=== PATIENT | female | born 1940 | race Caucasian/White ===

== ENCOUNTER → 2018-07-29 16:55 | Emergency (ER) | payer MEDICARE, BC ==
[~2018-07-29 16:55] MED LIST: Iodixanol* (CONTRAST) 320 MG/ML 100 ML SDV IV ONE
--- OUTSIDE RECORDS SUMMARY | 2018-07-29 17:09 | XMS REPORT | Continuity of Care Document ---
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 Sushil Shabazz MD Primary Care Physician Unavailable Payers Type Date Identification Numbers Payment Provider Subscriber Effective: Policy Number: [id number] [place] R[place]ff 2008 PayID: [id number] [address] [place] [address] Effective: 2008 Policy Number: [id number] [place] Ramos Expires: 2018 PayID: [id number] [address] [place] [address] Effective: 2004 Policy Number: [id number] [facility] Woody Ramos PayID: [id number] [address] [place] [address] Advance Directives Description No Information Available Problems Date Description Provider Status Onset: 03/09/2008 Aortic valve disorder Sushil Shabazz M.D. Active Onset: 03/09/2008 Osteochondropathy Sushil Shabazz M.D. Active Onset: 05/20/2011 Esophagitis Sushil Shabazz M.D. Active Onset: 05/20/2011 Hyperlipidemia Sushil Shabazz M.D. Active Onset: 10/02/2011 Contact dermatitis Sushil Shabazz M.D. Active Onset: 10/02/2011 Acute otitis externa Sushil Shabazz M.D. Active Onset: 10/15/2011 Arthralgia of the ankle and/or foot Dav Chavez M.D. Active Onset: 10/20/2011 Neuralgia Sushil Shabazz M.D. Active Onset: 12/15/2011 Superficial foreign body of finger Dav Chavez M.D. Active without major open wound but with infection Onset: 07/10/2015 Stenosis of foramen magnum Sushil Shabazz M.D. Active Family History Date Family Member(s) Problem(s) Comments Mother Breast Cancer Social History Type Date Description Comments Sex Unknown Tobacco Use Start: Unknown End: Unknown Former Cigarette Smoker Tobacco Use Start: Unknown End: Unknown Patient is a former smoker quit 1984 Smoking Status Reviewed: 07/19/18 Patient is a former smoker quit 1984 Allergies, Adverse Reactions, Alerts Date Description Reaction Status Severity Comments 07/05/2003 Penicillin Active Medications Medication Date Status Form Strength Qnty SIG Indications Ordering Provider Cyclobenzaprine 10/12 Active Tablets 10mg 45tab take one Carol HCL s tablet by Sunni, mouth twice a 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 NURSE day as needed pain Evening [place] Active Capsules 1 po bid Unknown Oil / Vitamin B Active Tablets 30tab 1 po bid Unknown Complex / s Vitamin E Active Capsules 400Unit 1 po qd Unknown /0000 Test/Estriol Active .5mg/GM 2 times per Unknown Vaginal Gel week Vitamin C Active Capsules 500mg 2 po bid Unknown / Calcium/Magnesiu Active 600/250 2 po bid Unknown m / mg Flax Seed Oil Active Capsules 1000mg 1 po tid Unknown / Progesterone Active topically Unknown Compound / Probiotic Active Capsules Unknown Acidophilus / Potassium & Active Capsules Unknown Magnesium / Vitamin D Active Capsules 5000Unit 1 by mouth Unknown /0000 every other day Xanax 16 Hx Tablets 0.25mg 20tab 1/2 to 1 tab F43.22 s by mouth To, - twice a day Afnp-C 04/29 as needed anxiety Ambien 16 Hx Tablets 5mg 14tab 1 po qhs prn F51.02 s insomnia To, - Afnp-C 10/05 Ciprofloxacin 02/26 Hx Solution 0.3% 5ml 2 qtts in H00.012 Carol HCL affected eye Sunni, - three times a CLINICAL 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 NURSE 03/30 day x 2d then twice a day until clear Physical Therapy 02/24 Hx evaluate and Ann Marie treat right Nainaorf, - intermittant Afnp-C 02/25 l buttock /2016 pain Nitrofurantoin 08/01 Hx Capsules 100mg 6caps 1 by mouth Sushil A. Monohydrate/Macr /2016 two times a Darlow, ocrystals - day M.D. 08/04 Clindamycin HCL 08/09 Hx Capsules 300mg 2caps 2 po, 1 hour Sushil A. /2014 [facility] 02/13 Meloxicam 04/28 Hx Tablets 7.5mg 28tab take 1 tablet 524.60 Sushil A. s bid Darlow, - M.D. 02/13 Orphenadrine 04/28 Hx Tablets 100mg 28tab take one Sushil A. Citrate ER /2013 ER 12HR s tablet [facility], - mouth twice a M.D. 02/13 day as needed /2014 Vivotif Geri 04/06 Hx Capsules 4caps 1 by mouth V65.[address] every other Kj, - day x 4 doses Afnp-C 04/14 Ciloxan 04/06 Hx Ointment 0.3% 15gr apply bid to 372.30 affected eye Kj, - x 7 days Afnp-C 02/13 Orphenadrine 02/09 Hx Tablets 100mg 28tab 1 po bid 524.60 Sushil A. Citrate ER 12HR s Darlow, - M.D. 02/23 Meloxicam 02/09 Hx Tablets 7.5mg 28tab take 1 tablet 524.60 Sushil A. s bid Darlow, - M.D. 02/23 Ciloxan 12/21 Hx Ointment 0.3% 15gr apply bid to 373.11 [facility]ushil A. [facility], - x 7 days M.D. 12/28 Tobramycin 12/09 Hx Solution 0.3% 5ml 2 gtts in os 379.90 Susie Sulfate tid x 5 days NUNU Villegas 12/21 Fluocinolone 09/23 Hx Cream 0.025% 30gm apply to 782.1 Carol Acetonide affected Sunni, - area bid CLINICAL 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 NURSE 12/09 Cipro 08/12 Hx Tablets 500mg 6tabs 1 po bid x 3 599.0 Susie /2013 days Brown, [employer] - 08/15 Clarithromycin 07/28 Hx Tablets 500mg 20tab 2 po qd 461.9 Sushil Ahumada ER ER 24HR Patricia Enamorado M.D. 08/07 Clindamycin HCL 08/17 Hx Capsules 300mg 2caps 2 po, 1 hour Sushil AIlir before dental Patricia Shabazz work Martha 08/18 Valium 05/31 Hx Tablets 5mg 30tab 1 po qday 300.00 Susanne Lazar Patricia Xiong M.D. 07/06 723.1 Physical Therapy 10/28/2011 - Hx treatment and Sushil Ahumada 12/15/2011 evaluation Martha Shabazz back pain Triamcinolone 10/02/2011 - Hx Lotion 0.02 60gr apply twice 692. Sushil Ahumada Acetonide 10/16/2011 5% daily as 9 Martha Shabazz directed for 14 days. Cipro HC 10/02/2011 - Hx Suspension 0.2- 10cc 2 gtt affected 380. Sushil AIlir 10/09/2011 1% ear bid x 7 22 Martha Shabazz days Tobradex 07/23/2011 - Hx Ointment 0.3- 15gr apply tid x 7 Sushil AIlir 07/30/2011 0.1% days Martha Shabazz Valium 06/30/2011 - Hx Tablets 5mg 30ta 1 po qday Sushil AIlir 10/02/2011 bs Martha Shabazz Cortisporin Otic 02/27/2011 - Hx Solution 15cc 2 gtt affected Sushil AIlir 03/06/2011 ear tid x 1 Martha Shabazz week Vosol 02/20/2011 - Hx Solution 2% 15cc 1-2 drops V41. Sushil AIlir 02/25/2011 affected ear 3 Martha Shabazz qd until problem resolved Clindamycin HCL 09/02/2010 - Hx Capsules 300m 2cap 2 po, 1 hour Sushil A. 12/11/2010 g s before dental Martha Shabazz work Clindamycin 03/31/2010 - Hx Capsules 300m 40ca 1 po qid x 10 Bekah von 09/02/2010 g ps Martha Alejandra Tobramycin 03/20/2010 - Hx Solution 0.3% 5ml 2 gtts qid for 372. Laine Gunn Sulfate 05/10/2010 one week OS 00 Martha San Vitamin E 03/01/2009 - Hx Capsules 400U 1 po qd [facility] 10/02/2011 nit [facility] Selenium 03/01/2009 - Hx Tablets 100m 1 PO qd [facility] 12/11/2010 cg [facility] Flaxseed Oil 03/01/2009 - Hx Capsules 1000 1 po qd [facility] 10/02/2011 mg [facility] Multivitamins 03/01/2009 - Hx Tablets 1 po qd [facility] 12/11/2010 [facility] Omeprazole 12/26/2008 - Hx Capsules DR 20mg 60ca 1 po bid Sushil A. 03/01/2009 yue Shabazz M.D. Nexium 12/14/2008 - Hx Capsules DR 40mg 30ca 1 po qd Sushil A. 12/14/2008 ps Martha Shabazz Pantoprazole 12/14/2008 - Hx 40mg 30un 1 po qd-bid Sushil A. 12/26/2008 its prn 1 po qd Martha Shabazz Physical Therapy 12/12/2008 - Hx treatment and Sushil AIlir 03/31/2010 evaluation for Martha Shabazz left rotator cuff-shoulder pain Vicodin 09/27/2008 - Hx Tablets 5-50 40ta 1-2 po qhs prn Bekah mendez 12/18/2008 0mg bs Martha Alejandra Tramadol HCL 09/21/2008 - Hx Tablets 50mg 120t 1 q6h prn pain Sushil A. 12/18/2008 abs Martha Shabazz Diflucan 09/08/2008 - Hx Tablets 150m 2tab 1 po times 1, Laine Gunn 12/18/2008 g s may repeat in Martha San 4 days if symptoms persist Fosamax 07/24/2008 - Hx Tabs 70mg 12ta Take One Sushil A. 03/01/2009 bs Tablet By Martha Shabazz Mouth Once A Week as Directed. Miralax 05/30/2008 - Hx Packet 3350 527G 17 grams qd as 564. Sushil A. 12/18/2008 NF directed 09 Martha Shabazz Naproxen Sodium 11/24/2007 - Hx Tablets 275m 60ta 1 po tid prn Ann Marie 11/24/2007 g bs Hilninaorf, Afnp-C Ultracet 11/24/2007 - Hx Tablets 180t 1-2 tid prn Sushil A. 09/21/2008 abs pain Martha Shabazz Naproxen 11/24/2007 - Hx Tablets 500m 60ta 1 po bid prn Ann Marie 12/18/2008 g bs pain Nainaorf, Afnp-C Physical Therapy 11/24/2007 - Hx l radicular Ann Marie 03/09/2008 [facility]suspect back Afnp-C origin , please evaluate and treat for pain relief and prevention Ambien 11/11/2007 - Hx Tablets 10mg 30ta 1 po qhs prn Sushil A. 10/02/2011 bs sleep Martha Shabazz Ambien CR 06/17/2007 - Hx 12.5 90un 1 po qhs Sushil A. 11/11/2007 mg its Martha Shabazz disp ninety Rhinocort Aqua 06/05/2007 - Hx Suspension 32mc 1uni 381. Carol Moeller, Nasal Eclectic 03/01/2009 g/In ts 04 CLINICAL 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 NURSE hala tion Zithromax 01/16/2007 - Hx Tablets 250m 1tab 2 po qd today Asad F. 01/16/2007 g s , then 1 po qd Shallish, times 4 M.D. Levaquin 01/16/2007 - Hx Tablets 500m 7tab 1 po qd 466. Asad F. 01/23/2007 g s 0 Martha Page Ceftin 12/21/2006 - Hx Tablets 500m 20ta 1 po bid x 10 Orlando T. 01/16/2007 g bs days Martha Good Ibuprofen 09/08/2006 - Hx 2 600m 42un 1 po tid with 728. Abigail A 06/05/2007 g its food 85 Wood, [employer] Flexeril 09/08/2006 - Hx Tablets 10mg 42ta 1 po tid prn 723. Sushil A. 10/02/2011 bs muscle spasm 9 Martha Shabazz Celebrex 07/07/2006 - Hx Capsules 100m 180c 1 bid prn 715. Sushil A. 03/09/2008 g aps 09 Martha Shabazz take with food 723.9 Naprosyn 05/15/2006 - Hx Tablets 500mg 60tabs 1 po bid with Sushil A. 06/05/2007 food Martha Shabazz Glucosamine 02/05/2006 - Hx 1500A Day Denys J. Sulfate 12/11/2010 Martha Lincoln Clindamycin 01/05/2006 - Hx Capsules 300mg 2caps 2 po 1 hour Sushil A. 06/27/2010 before dental deny Shabazz M.D. Hormone 11/06/2005 - Hx 30D progesterone Sushil A. Compounded 10/02/2011 75mg/0.2cc; Mele testosterone M.DIlir 1mg; dhea 5mg apply 0.1cc bid ; note: estrogen stopped based on labs Melatonin 09/03/2005 - Hx 5mg as directed Family 09/03/2005 [facility] Melatonin 09/03/2005 - Hx 3mg 2 qhs 4-5 h Family 06/05/2007 before bedtime. [facility] Physical 08/22/2005 - Hx treatment and Denys J. Therapy 09/03/2005 evaluation for Salazar, bilateral hip M.D. pain Omeprazole 08/14/2005 - Hx Capsules 20mg 90caps 1 po qd Ann Marie 12/14/2008 Nadya Ariza Estradiol 06/30/2005 - Hx 1Tube apply 1gm to Denys Hernández Vaginal Cream 06/30/2005 introitus 3x/wk Finver, for 3 wks of M.D. month Progesterone 06/30/2005 - Hx Capsules 100mg 60caps 1 po bid Denys J. 11/06/2005 Martha Lincoln Hormone Cream 06/30/2005 - Hx Cream Compounded 30Day biest 80/20 Denys Sandoval. 11/06/2005 e3:e2 [place], 0.5mg/0.2cc M.D. apply 0.1 cc bid to skin Flexeril 06/02/2005 - Hx Tablets 10mg 30tabs 1 po Q hs prn 7 Carol 09/03/2005 muscle spasm 2 Sunni, 3 CLINICAL 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 NURSE . 9 Physical 06/02/2005 - Hx treatment and 7 Carol Therapy 09/03/2005 evaluation 2 Sunni, cervical strain 3 CLINICAL 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 NURSE with . radiculpathy to 9 RT arm Physical 12/05/2004 - Hx 3/WK 6WKS treatment and Denys J. Therapy 09/03/2005 evaluation for lt Salazar hip pain M.DIlir /DJDIlir and gait abnormality assoc with the pain Calcium 10/18/2004 - Hx Lozenges 600mg Denys J. Citrate 03/01/2009 Martha Lincoln Work Excuse 10/18/2004 - Hx Seen In My Denys Hernández 10/19/2004 Office AT Salazar, 10:30Am This Martha Morning For Sick Visit. Ok To Return To Work Today Diflucan 10/18/2004 - Hx Tablets 150mg 1tabs 1 po times 1 Denys J. 10/19/2004 day Martha Lincoln Clindamycin 10/01/2004 - Hx 600mg 1units take 1 hour Sushil A. 01/05/2006 prior to lizzy Shabazz M.D. Flu Vaccine 05/24/2004 - Hx pt is to have Denys Hernández 09/03/2005 flu shot Martha Lincoln Premarin 04/03/2004 - Hx .625mg/ Gram 3Tube 2 grams Denys JIlir Vaginal Cream 06/30/2005 intravaginally Salazar 2 x weekly M.DIlir Physical 02/23/2004 - Hx treatment and Bekah Therapy 04/24/2004 evaluation for vanessa Alejandra hip therapy Martha after hip surgery Prilosec 01/22/2004 - Hx 20mg 30units 1 po qd Bekah 04/24/2004 vanessa Alejandra M.D. Vicodin 01/09/2004 - Hx 5/500 60units 1-2 po q4hrs Denys Hernández 01/26/2004 prn Martha Lincoln Albuterol 12/04/2003 - Hx 1units 2 puffs q4hr Denys Hernández Inhaler 05/30/2008 Martha Lincoln Biaxin XL 10/26/2003 - Hx 500mg 14units 2 po qd Sushil Ahumada 11/09/2003 Martha Shabazz Extendryl SR 10/26/2003 - Hx Capsules 20caps 1 bid Sushil Ahumada Caps 11/05/2003 Martha Shabazz Naprosyn 09/22/2003 - Hx Tabs 500mg 90tabs 1 bid with food Denys Hernández 01/26/2004 Martha Lincoln Ultracet 08/30/2003 - Hx 37.5/325 360unit 1q6hrs prn Denys Hernández 01/26/2004 augustine Lincoln M.D. 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 Celebrex 07/05/2003 - Hx Tabs 200mg 180tabs 1 po bid prn Denys Hernández 01/26/2004 Martha Lincoln Osteo Complex - Hx Capsules Unknown 10/02/2011 Vitamin D - Hx Capsules [id number] 1 po qd Unknown 02/13/2015 Ginko E/S - Hx 300mg 1 po bid Unknown 10/20/2012 Potassium/Magn - Hx 99/70 mg 1 po bid Unknown esium 12/21/2013 Cod Liver Oil - Hx qd Unknown 08/12/2013 Metoprolol - Hx Tablets 25mg 180tabs 1 po bid Unknown Tartrate 09/14/2012 Aspirin Ec - Hx Tablets DR 81mg 30tabs 1 po qd Unknown 10/20/2012 Xarelto - Hx Tablets 20mg 1 po qd Unknown 07/06/2013 Sotalol HCL - Hx Tablets 80mg 1 po bid Unknown 07/06/2013 Aspirin Ec - Hx Tablets DR 81mg 100tabs 1 po qd Unknown 10/10/2015 Medications Administered in Office Medication Date Status Form Strength Qnty SIG Indications Ordering Provider H1N1 MDCR Administered Injection Susanne Cady vaccine any 010 Garydarian M.D. Immunizations CPT Code Status Date Vaccine Reaction Lot # [id number] Given 05/11/2018 High-Dose, Influenza Virus [id number] Vacccine-fluzone 65 and older 94431 Given 02/26/2017 High-Dose, Influenza Virus [id number] Vacccine-fluzone 65 and older 40093 Given 06/27/2016 Influenza Vac, Quadrivalent, [id number] [address] Given 07/10/2015 Pneumococcal Conjugate [id number] Vacc-13 66488 Given 05/08/2015 Influenza Vac, Quadrivalent, [id number] Slit Virus, Im Q2038 Given 04/06/2014 Split Influenza Medicare: [id number] Fluzone 97442 Given 04/06/2014 Tdap Tetanus, W Pertussis [id number] 66527 Given 04/06/2014 (IPV) Inactive Poliovirus [id number] Vaccine 31784 Given 04/06/2014 Hep A Adlt Immunization [id number] 55242 Given 06/30/2013 Preservative free flu 3 yrs+ [id number] and older Q2038 Given 03/05/2012 Split Influenza Medicare: no reaction noted [id number] Fluzone Q2038 Given 05/02/2011 Split Influenza Medicare: [id number] Fluzone 54699 Given 03/16/2010 DO Not Use Split Influenza [id number] Virus Vaccine 24946 Given 06/29/2009 H1N1 Virus Vaccine [id number] 65935 Given 05/16/2009 DO Not Use Split Influenza [id number] Virus Vaccine 53657 Given 03/21/2008 DO Not Use Split Influenza [id number] Virus Vaccine 79525 Given 06/03/2007 DO Not Use Split Influenza [id number] Virus Vaccine 56902 Given 05/14/2005 Pneumococcal Immunization 06282 Given 03/20/2005 DO Not Use Split Influenza Virus Vaccine 56649 Given 12/12/2003 Td Immunization, For Use In Individuals 7 Years Or Older 79119 Given 12/12/2003 DT Immunization Vital Signs Date Vital Result Comment 07/19/2018 7:30pm BP Systolic 110 mmHg BP Diastolic 70 mmHg Heart Rate 60 /min Body Temperature 98.0 F Respiratory Rate 16 /min Height 67.5 inches 5'7.50" Weight 145.00 lb BMI (Body Mass Index) 22.4 kg/m2 01/14/2018 1:56pm BP Systolic 100 mmHg BP Diastolic 60 mmHg Heart Rate 84 /min Body Temperature 98.4 F Respiratory Rate 16 /min Height 67.5 inches 5'7.50" Weight 143.00 lb BMI (Body Mass Index) 22.1 kg/m2 11/04/2017 8:16am BP Systolic 116 mmHg BP Diastolic 66 mmHg Heart Rate 80 /min Body Temperature 97.6 F Respiratory Rate 16 /min Height 67.5 inches 5'7.50" Weight 147.00 lb BMI (Body Mass Index) 22.7 kg/m2 03/30/2017 2:46pm BP Systolic 100 mmHg BP Diastolic 56 mmHg Heart Rate 68 /min Body Temperature 97.7 F Respiratory Rate 16 /min Height 67.5 inches 5'7.50" Weight 146.00 lb BMI (Body Mass Index) 22.5 kg/m2 02/26/2017 1:52pm BP Systolic 96 mmHg BP Diastolic 56 mmHg Heart Rate 72 /min Body Temperature 97.7 F Height 67.5 inches 5'7.50" Weight 153.50 lb BMI (Body Mass Index) 23.7 kg/m2 12/29/2016 4:17pm BP Systolic 110 mmHg BP Diastolic 72 mmHg Heart Rate 68 /min Body Temperature 97.7 F Height 67.5 inches 5'7.50" Weight 151.38 lb BMI (Body Mass Index) 23.4 kg/m2 10/28/2016 8:36am BP Systolic 118 mmHg BP Diastolic 72 mmHg Heart Rate 92 /min Body Temperature 97.3 F Respiratory Rate 16 /min Height 67.5 inches 5'7.50" Weight 154.00 lb BMI (Body Mass Index) 23.8 kg/m2 08/28/2016 4:23pm BP Systolic 130 mmHg BP Diastolic 62 mmHg Heart Rate 76 /min Body Temperature 98.5 F Respiratory Rate 18 /min Height 67.5 inches 5'7.50" Weight 150.25 lb BMI (Body Mass Index) 23.2 kg/m2 02/25/2016 11:23am BP Systolic 90 mmHg BP Diastolic 50 mmHg Heart Rate 74 /min Body Temperature 98.6 F Respiratory Rate 16 /min Height 67.5 inches 5'7.50" 02/06/2016 10:53am BP Systolic 110 mmHg BP Diastolic 70 mmHg Heart Rate 72 /min Body Temperature 97.5 F Respiratory Rate 16 /min Height 67.5 inches 5'7.50" Weight 146.00 lb BMI (Body Mass Index) 22.5 kg/m2 10/10/2015 11:00am BP Systolic 120 mmHg BP Diastolic 60 mmHg Heart Rate 88 /min Body Temperature 98.1 F Respiratory Rate 12 /min Height 67.5 inches 5'7.50" Weight 146.00 lb BMI (Body Mass Index) 22.5 kg/m2 09/12/2015 3:23pm BP Systolic 110 mmHg BP Diastolic 54 mmHg Heart Rate 84 /min Body Temperature 98.1 F Respiratory Rate 16 /min Height 67.5 inches 5'7.50" Weight 143.00 lb BMI (Body Mass Index) 22.1 kg/m2 08/15/2015 1:46pm BP Systolic 110 mmHg BP Diastolic 60 mmHg Heart Rate 76 /min Body Temperature 97.7 F Respiratory Rate 16 /min Height 67.5 inches 5'7.50" Weight 144.00 lb BMI (Body Mass Index) 22.2 kg/m2 07/10/2015 10:39am BP Systolic 110 mmHg BP Diastolic 64 mmHg Heart Rate 68 /min Body Temperature 97.5 F Respiratory Rate 16 /min Height 67.5 inches 5'7.50" Weight 141.00 lb BMI (Body Mass Index) 21.8 kg/m2 02/13/2015 8:57am BP Systolic 102 mmHg BP Diastolic 62 mmHg Heart Rate 68 /min Body Temperature 98.0 F Height 67.5 inches 5'7.50" Weight 138.25 lb BMI (Body Mass Index) 21.3 kg/m2 04/06/2014 3:33pm BP Systolic 110 mmHg BP Diastolic 60 mmHg Heart Rate 78 /min Body Temperature 98.4 F Height 67.5 inches 5'7.50" Weight 135.38 lb BMI (Body Mass Index) 20.9 kg/m2 02/09/2014 6:05pm BP Systolic 100 mmHg BP Diastolic 70 mmHg Heart Rate 100 /min Body Temperature 98.1 F Respiratory Rate 16 /min Height 67.5 inches 5'7.50" Weight 132.00 lb BMI (Body Mass Index) 20.4 kg/m2 12/21/2013 8:44am BP Systolic 110 mmHg BP Diastolic 60 mmHg Heart Rate 64 /min Body Temperature 97.4 F Respiratory Rate 12 /min Height 67.5 inches 5'7.50" Weight 139.00 lb BMI (Body Mass Index) 21.4 kg/m2 12/09/2013 10:58am BP Systolic 100 mmHg BP Diastolic 60 mmHg Heart Rate 68 /min Body Temperature 98.1 F Respiratory Rate 16 /min Height 67.5 inches 5'7.50" Weight 138.00 lb BMI (Body Mass Index) 21.3 kg/m2 09/23/2013 4:22pm BP Systolic 112 mmHg BP Diastolic 70 mmHg Heart Rate 62 /min Body Temperature 97.7 F Respiratory Rate 18 /min Height 67.5 inches 5'7.50" Weight 146.00 lb BMI (Body Mass Index) 22.5 kg/m2 08/12/2013 4:50pm BP Systolic 114 mmHg BP Diastolic 64 mmHg Heart Rate 72 /min Body Temperature 98.4 F Respiratory Rate 16 /min Height 67.5 inches 5'7.50" Weight 148.38 lb BMI (Body Mass Index) 22.9 kg/m2 07/28/2013 3:25pm BP Systolic 112 mmHg BP Diastolic 70 mmHg Heart Rate 80 /min Body Temperature 98.1 F Respiratory Rate 16 /min O2 % BldC Oximetry 98 % Height 67.5 inches 5'7.50" Weight 147.00 lb BMI (Body Mass Index) 22.7 kg/m2 07/06/2013 10:46am BP Systolic 122 mmHg BP Diastolic 70 mmHg Heart Rate 80 /min Body Temperature 97.5 F Respiratory Rate 16 /min Height 67.5 inches 5'7.50" Weight 153.00 lb BMI (Body Mass Index) 23.6 kg/m2 10/20/2012 11:55am BP Systolic 116 mmHg BP Diastolic 60 mmHg Heart Rate 72 /min Body Temperature 97.7 F Respiratory Rate 16 /min Height 67.25 inches 5'7.25" Weight 153.00 lb BMI (Body Mass Index) 23.8 kg/m2 09/14/2012 2:48pm BP Systolic 110 mmHg BP Diastolic 62 mmHg Heart Rate 76 /min Body Temperature 98.7 F Height 67.25 inches 5'7.25" Weight 153.00 lb BMI (Body Mass Index) 23.8 kg/m2 09/03/2012 4:18pm BP Systolic 102 mmHg BP Diastolic 62 mmHg Heart Rate 80 /min Body Temperature 98.3 F Height 67.25 inches 5'7.25" Weight 153.00 lb BMI (Body Mass Index) 23.8 kg/m2 09/02/2012 5:27pm BP Systolic 114 mmHg BP Diastolic 58 mmHg Heart Rate 88 /min Body Temperature 98.9 F Respiratory Rate 16 /min Height 67.25 inches 5'7.25" Weight 153.00 lb BMI (Body Mass Index) 23.8 kg/m2 06/30/2012 2:41pm BP Systolic 120 mmHg BP Diastolic 80 mmHg Heart Rate 84 /min Body Temperature 97.2 F Respiratory Rate 16 /min Height 67.25 inches 5'7.25" Weight 159.00 lb BMI (Body Mass Index) 24.7 kg/m2 05/31/2012 8:16am BP Systolic 120 mmHg BP Diastolic 80 mmHg Heart Rate 88 /min Body Temperature 97.6 F Respiratory Rate 20 /min Height 67.25 inches 5'7.25" Weight 156.00 lb BMI (Body Mass Index) 24.2 kg/m2 02/06/2012 10:26am BP Systolic 98 mmHg BP Diastolic 60 mmHg Heart Rate 84 /min Body Temperature 97.9 F Height 67.25 inches 5'7.25" Weight 153.00 lb BMI (Body Mass Index) 23.8 kg/m2 12/15/2011 3:30pm BP Systolic 110 mmHg BP Diastolic 72 mmHg Heart Rate 80 /min Body Temperature 98.2 F Height 67.25 inches 5'7.25" Weight 150.00 lb BMI (Body Mass Index) 23.3 kg/m2 10/20/2011 11:01am BP Systolic 150 mmHg BP Diastolic 80 mmHg Heart Rate 84 /min Body Temperature 97.5 F Respiratory Rate 20 /min Height 67.25 inches 5'7.25" Weight 146.00 lb BMI (Body Mass Index) 22.7 kg/m2 10/15/2011 5:43pm BP Systolic 108 mmHg BP Diastolic 78 mmHg Heart Rate 78 /min Body Temperature 97.9 F Height 67.25 inches 5'7.25" Weight 144.00 lb BMI (Body Mass Index) 22.4 kg/m2 10/02/2011 1:23pm BP Systolic 120 mmHg BP Diastolic 70 mmHg Heart Rate 84 /min Body Temperature 98.5 F Respiratory Rate 16 /min O2 % BldC Oximetry 96 % Height 67.25 inches 5'7.25" Weight 142.00 lb BMI (Body Mass Index) 22.1 kg/m2 08/05/2011 11:21am BP Systolic 110 mmHg BP Diastolic 68 mmHg Heart Rate 80 /min Body Temperature 98.7 F Respiratory Rate 16 /min Height 67.25 inches 5'7.25" Weight 142.00 lb BMI (Body Mass Index) 22.1 kg/m2 Right Visual Acuity Distance 20/25 corrected Left Visual Acuity Distance 20/25 corrected 05/20/2011 9:55am BP Systolic 110 mmHg BP Diastolic 72 mmHg Heart Rate 66 /min Body Temperature 97.3 F Respiratory Rate 16 /min Height 67.25 inches 5'7.25" Weight 144.00 lb BMI (Body Mass Index) 22.4 kg/m2 02/20/2011 2:36pm BP Systolic 90 mmHg BP Diastolic 70 mmHg Heart Rate 68 /min Body Temperature 98.2 F Respiratory Rate 16 /min Height 67.25 inches 5'7.25" Weight 147.50 lb BMI (Body Mass Index) 22.9 kg/m2 12/11/2010 3:20pm BP Systolic 100 mmHg BP Diastolic 70 mmHg Heart Rate 72 /min Body Temperature 97.3 F Height 67.25 inches 5'7.25" Weight 158.00 lb BMI (Body Mass Index) 24.6 kg/m2 05/10/2010 11:00am BP Systolic 114 mmHg BP Diastolic 62 mmHg Heart Rate 84 /min Body Temperature 97.8 F Height 67.25 inches 5'7.25" Weight 162.00 lb BMI (Body Mass Index) 25.2 kg/m2 03/20/2010 8:52pm BP Systolic 100 mmHg BP Diastolic 62 mmHg Heart Rate 72 /min Body Temperature 97.2 F Respiratory Rate 14 /min Height 67.25 inches 5'7.25" Weight 162.00 lb BMI (Body Mass Index) 25.2 kg/m2 02/05/2010 1:35pm BP Systolic 84 mmHg BP Diastolic 62 mmHg Heart Rate 60 /min Height 67.25 inches 5'7.25" Weight 160.00 lb BMI (Body Mass Index) 24.9 kg/m2 01/28/2010 2:19pm BP Systolic 110 mmHg BP Diastolic 60 mmHg Heart Rate 68 /min Body Temperature 98.1 F Respiratory Rate 16 /min Height 67.25 inches 5'7.25" Weight 160.00 lb BMI (Body Mass Index) 24.9 kg/m2 10/31/2009 9:49am BP Systolic 84 mmHg BP Diastolic 64 mmHg Heart Rate 66 /min Body Temperature 96.7 F Height 67.25 inches 5'7.25" Weight 155.00 lb BMI (Body Mass Index) 24.1 kg/m2 06/29/2009 3:55pm BP Systolic 98 mmHg BP Diastolic 68 mmHg Heart Rate 76 /min Body Temperature 97.4 F Respiratory Rate 12 /min Weight 151.00 lb 05/16/2009 6:10pm BP Systolic 92 mmHg BP Diastolic 60 mmHg Heart Rate 72 /min Body Temperature 97.4 F 03/01/2009 2:55pm BP Systolic 100 mmHg BP Diastolic 60 mmHg Heart Rate 72 /min Body Temperature 98.4 F Respiratory Rate 18 /min Weight 145.00 lb 12/26/2008 10:32am BP Systolic 118 mmHg BP Diastolic 62 mmHg Heart Rate 72 /min Body Temperature 97.8 F Respiratory Rate 16 /min Weight 142.00 lb 12/18/2008 9:06am BP Systolic 98 mmHg BP Diastolic 60 mmHg Heart Rate 104 /min Body Temperature 98.8 F Respiratory Rate 20 /min Weight 141.00 lb 05/30/2008 11:05am BP Systolic 108 mmHg BP Diastolic 72 mmHg Heart Rate 88 /min Body Temperature 97.2 F Respiratory Rate 12 /min Height 67.25 inches 5'7.25" Weight 166.00 lb BMI (Body Mass Index) 25.8 kg/m2 03/21/2008 9:24am BP Systolic 92 mmHg BP Diastolic 60 mmHg Heart Rate 88 /min Body Temperature 97.2 F Respiratory Rate 16 /min Height 67.25 inches 5'7.25" Weight 169.00 lb BMI (Body Mass Index) 26.3 kg/m2 03/09/2008 12:37pm BP Systolic 92 mmHg BP Diastolic 64 mmHg Heart Rate 84 /min Body Temperature 98.2 F Respiratory Rate 16 /min Height 67.25 inches 5'7.25" Weight 173.00 lb BMI (Body Mass Index) 26.9 kg/m2 11/24/2007 6:09pm BP Systolic 126 mmHg BP Diastolic 78 mmHg Heart Rate 88 /min Respiratory Rate 13 /min Weight 170.00 lb 11/02/2007 8:22am BP Systolic 98 mmHg BP Diastolic 58 mmHg Heart Rate 74 /min Respiratory Rate 16 /min Weight 172.00 lb 10/11/2007 8:15pm BP Systolic 100 mmHg BP Diastolic 70 mmHg Body Temperature 98.0 F Weight 172.00 lb 09/20/2007 8:34pm BP Systolic 98 mmHg BP Diastolic 60 mmHg Heart Rate 78 /min Body Temperature 98.1 F Respiratory Rate 13 /min 06/05/2007 11:05am BP Systolic 110 mmHg BP Diastolic 60 mmHg Heart Rate 88 /min Body Temperature 96.4 F Weight 170.00 lb 01/23/2007 11:06am BP Systolic 96 mmHg BP Diastolic 50 mmHg Heart Rate 72 /min Body Temperature 97.5 F Respiratory Rate 20 /min O2 % BldC Oximetry 96 % Weight 168.00 lb 01/16/2007 1:52pm BP Systolic 104 mmHg BP Diastolic 60 mmHg Heart Rate 80 /min Body Temperature 97.6 F Weight 168.00 lb 12/21/2006 6:23pm BP Systolic 106 mmHg BP Diastolic 60 mmHg Body Temperature 98.3 F Weight 170.00 lb 11/27/2006 4:27pm BP Systolic 100 mmHg BP Diastolic 50 mmHg Heart Rate 84 /min Weight 169.00 lb 09/08/2006 7:36pm BP Systolic 100 mmHg BP Diastolic 60 mmHg Body Temperature 72.0 F Weight 171.00 lb 08/10/2006 4:22pm BP Systolic 120 mmHg BP Diastolic 82 mmHg Heart Rate 72 /min Respiratory Rate 18 /min 07/07/2006 10:50am BP Systolic 122 mmHg BP Diastolic 70 mmHg Heart Rate 62 /min Respiratory Rate 16 /min Weight 172.00 lb 02/05/2006 8:43am BP Systolic 100 mmHg BP Diastolic 74 mmHg Heart Rate 76 /min Weight 166.00 lb 11/06/2005 11:00am BP Systolic 100 mmHg BP Diastolic 60 mmHg Heart Rate 66 /min Weight 166.00 lb 09/03/2005 8:19pm BP Systolic 102 mmHg BP Diastolic 68 mmHg Heart Rate 72 /min 08/14/2005 10:07am BP Systolic 106 mmHg BP Diastolic 60 mmHg Heart Rate 72 /min Weight 165.00 lb 06/30/2005 2:20pm BP Systolic 102 mmHg BP Diastolic 62 mmHg Heart Rate 76 /min Weight 163.00 lb 06/02/2005 8:19pm BP Systolic 108 mmHg BP Diastolic 70 mmHg Heart Rate 72 /min Weight 166.00 lb 04/03/2005 9:00am BP Systolic 90 mmHg BP Diastolic 50 mmHg Heart Rate 75 /min 01/07/2005 8:14pm BP Systolic 96 mmHg BP Diastolic 54 mmHg Heart Rate 72 /min Weight 160.00 lb 10/18/2004 10:10am BP Systolic 90 mmHg BP Diastolic 60 mmHg Heart Rate 78 /min Weight 159.00 lb 04/24/2004 6:41pm BP Systolic 88 mmHg BP Diastolic 54 mmHg Heart Rate 68 /min Weight 153.00 lb 02/13/2004 11:13am BP Systolic 90 mmHg BP Diastolic 68 mmHg Heart Rate 84 /min Weight 150.00 lb 01/26/2004 2:17pm BP Systolic 102 mmHg BP Diastolic 72 mmHg Heart Rate 76 /min Weight 154.00 lb 01/11/2004 2:11pm BP Systolic 94 mmHg BP Diastolic 64 mmHg Heart Rate 88 /min Body Temperature 96.9 F Weight 159.00 lb 12/12/2003 6:38pm BP Systolic 94 mmHg BP Diastolic 68 mmHg Heart Rate 84 /min Body Temperature 96.7 F Weight 164.00 lb 12/04/2003 1:18pm BP Systolic 118 mmHg BP Diastolic 72 mmHg Heart Rate 76 /min Body Temperature 99.2 F Weight 162.00 lb 10/26/2003 7:51pm BP Systolic 120 mmHg BP Diastolic 70 mmHg Heart Rate 76 /min Body Temperature 97.4 F Weight 164.00 lb 07/05/2003 6:23pm BP Systolic 90 mmHg BP Diastolic 60 mmHg Heart Rate 60 /min Weight 166.00 lb Results Test Date Facility Test Result H/L Range Note Lipid Profile 06/04/2018 Agapito Kyra ([facility]) Cholesterol 265 mg/dL High 120-200 Triglycerides 108 mg/dL 30-200 HDL Cholesterol 119 mg/dL High 30-85 LDL (Calculated) 124 CALC 0-129 VLDL Cholesterol 22 mg/dL 0-50 HDL Risk Factor 2.2 CALC 0.0-4.4 Laboratory test 11/04/2017 Agapito Kyra ([facility]) Vitamin D25 46 30-100 finding CBC Electronic a 11/04/2017 Agapito Kyra ([facility]) WBC 5.9 4.0-10.0 x10^3/UL RBC 4.17 x10^6/UL 3.93-6.00 HGB 13.4 g/dL 12.0-17.0 HCT 41 % 35-50 MCV 98.6 fL High 80.0-95.0 MCH 32.1 pg 25.6-32.2 MCHC 32.6 g/dL 32.2-36.0 RDW-CV 14.5 % High 11.6-14.4 PLT 172 x10^3/UL 163-400 MPV 10.3 fL 9.4-12.4 Sourav# 3.27 x10^3/UL 1.56-6.13 Lymph# 1.82 x10^3/UL 1.18-3.74 Mclennan# 0.54 x10^3/UL 0.24-0.82 Eos # 0.2 x10^3/UL 0.0-0.5 Baso # 0.04 x10^3/UL 0.01-0.08 Sourav% 55.5 % 34.0-70.0 Lymph % 30.9 % 20.0-52.0 Mclennan% 9.2 % 5.0-12.0 Eos% 3.4 % 0.7-7.0 Baso% 0.7 % 0.1-1.2 Comprehensive Metabolic 11/04/2017 Altman Kyra ([facility]) Sodium 142 mEq/L 134-149 Prof Potassium 4.3 mEq/L 3.6-5.5 Chloride 101 mEq/L 94-112 Carbon Dioxide 29 mEq/L 21-32 Glucose 111 mg/dL High 70-105 1 BUN 17 mg/dL 6-26 Creatinine 0.9 mg/dL 0.6-1.4 BUN/Creat Ratio 18.9 CALC 8.0-36.0 Calcium 9.3 mg/dL 8.6-10.2 Total Protein 6.7 g/dL 6.4-8.3 Albumin 4.4 g/dL 3.8-5.5 Globulin 2.3 g/dL 2.0-4.8 A/G Ratio 1.9 CALC 0.6-2.3 Alk. Phosphatase 63 U/L 30-110 Alt (SGPT) 17 U/L 7-35 Ast (Sgot) 25 U/L 5-34 Total Bilirubin 0.4 mg/dL 0.2-1.3 GFR Non- >60 ml/min/1.73m^ >=60 GFR >60 ml/min/1.73m^ >=60 Lipid Profile 11/04/2017 Agapito Rae ([facility]) Cholesterol 295 mg/dL High 120-200 Triglycerides 78 mg/dL 30-200 HDL Cholesterol 110 mg/dL High 30-85 2 LDL (Calculated) 169 CALC High 0-129 VLDL Cholesterol 16 mg/dL 0-50 HDL Risk Factor 2.7 CALC 0.0-4.4 CBC Auto Diff 01/23/2016 [facility] [place] Blood Count 6.8 10^3/uL N 3.5-10.8 Red Blood Count 3.81 10^6/uL Low 4.0-5.4 Hemoglobin 11.8 g/dL Low 12.0-16.0 Hematocrit 36 % N 35-47 Mean Corpuscular Volume 95 fL N 80-97 Mean Corpuscular Hemoglobin 31 pg N 27-31 Mean Corpuscular HGB Conc 33 g/dL N 31-36 Red Cell Distribution Width 14 % N 10.5-15 Platelet Count 168 10^3/uL N 150-450 Mean Platelet Volume 9 um3 N 7.4-10.4 Abs Neutrophils 4.1 10^3/uL N 1.5-7.7 Abs Lymphocytes 1.8 10^3/uL N 1.0-4.8 Abs Monocytes 0.7 10^3/uL N 0-0.8 Abs Eosinophils 0.1 10^3/uL N 0-0.6 Abs Basophils 0.1 10^3/uL N 0-0.2 Abs Nucleated RBC 0 10^3/uL N Granulocyte % 60.7 % N 38-83 Lymphocyte % 27.2 % N 25-47 Monocyte % 9.8 % High 1-9 Eosinophil % 0.9 % N 0-6 Basophil % 1.4 % N 0-2 Nucleated Red Blood Cells % 0 N Comp Metabolic Panel 01/23/2016 [facility] [place] Sodium 138 mmol/L N 133-145 Potassium 3.9 mmol/L N 3.5-5.0 Chloride 104 mmol/L N 101-111 Co2 Carbon Dioxide 28 mmol/L N 22-32 Anion Gap 6 mmol/L N 2-11 Glucose 128 mg/dL High 70-100 Blood Urea Nitrogen 19 mg/dL N 6-24 Creatinine 0.95 mg/dL N 0.51-0.95 BUN/Creatinine Ratio 20.0 N 8-20 Calcium 9.0 mg/dL N 8.6-10.3 Total Protein 6.6 g/dL N 6.4-8.9 Albumin 3.6 g/dL N 3.2-5.2 Globulin 3.0 g/dL N 2-4 Albumin/Globulin Ratio 1.2 N 1-3 Total Bilirubin 0.40 mg/dL N 0.2-1.0 Alkaline Phosphatase 65 U/L N 34-104 Alt 10 U/L N 7-52 Ast 17 U/L N 13-39 Egfr Non- 57.5 N >60 Egfr 74.0 N >60 3 Laboratory test 01/23/2016 [facility] [place]roponin I 0.00 ng/mL N <0.03 4 finding Laboratory test 08/15/2015 Altman Kyra ([facility]) TSH 1.04 mIU/L 0.50- 6.00 finding Free T4 1.15 ng/dL 0.75-1.54 CBC Electronic ([facility]) 08/15/2015 [facility] WBC 6.4 3.6-9.6 (607)- - RBC 4.01 3.90-5.70 Hemoglobin ([facility]/CTX) 12.6 g/dL 12.1 - 17.2 Hematocrit ([facility]/CTX) 38.3 % 36.1 - 50.3 Platelets 247 10^3/ul 150-400 Lymph% 37.6 % 17.0-48.0 Mixed% 6.2 Neutrophils % 56.2 Mean Corpuscular Vol 95 82.2-97.4 Mean Corpuscular Hemoglobin 31.6 27.6-33.3 Mean Corpuscular Hemo Concen 33.1 32.0-36.0 RDW 14.5 High 11.6-13.7 Mean Platelet Volume 7.1 5.5-11.0 Ua - Micro (a) 08/01/2015 [facility] Appearance CLEAR (607)- - Color YELLOW Glucose, Urine ([facility]/CTX) NEG Bilirubin NEG Ketones TRACE # SP Grav >=1.030 Blood TRACE-INTACT # PH 5.5 Protein NEG Urobil 0.2 Nitrite NEG Leukocytes ([facility]) NEG Hyaline - /Lpf Granular - /Lpf WBC ([facility]) 2-3 # RBC 1-2 # Mucus ([facility]/CBC/[facility]) - /Lpf Epith RARE /Lpf # Bacteria TRACE-1+ /Hpf # Amorphous ([facility]) - /Lpf Crystals, Fluid ([facility]/CMC/CTX) - Z#Comments - Laboratory test 08/01/2015 [facility] [place] Culture And SEE RESULT 5 finding Sensitivities BELOW Basic Metabolic 07/10/2015 Altman Kyra (a) Sodium 139 mEq/L 134-14 Profile 9 Potassium 4.6 mEq/L 3.6-5.5 Chloride 98 mEq/L 94-112 Carbon Dioxide 29 mEq/L 21-32 Glucose 102 mg/dL 70-105 BUN 12 mg/dL 6-26 Creatinine 0.8 mg/dL 0.6-1.4 BUN/Creat Ratio 15.0 CALC 8.0-36.0 Calcium 9.9 mg/dL 8.6-10.2 GFR Non- >60 ml/min/1.73m^ >=60 GFR >60 ml/min/1.73m^ >=60 Lipid Profile 07/10/2015 Altman Kyra ([facility]) Cholesterol 227 mg/dL High 120-200 Triglycerides 111 mg/dL 30-200 HDL Cholesterol 92 mg/dL High 30-85 6 LDL (Calculated) 113 CALC 0-129 VLDL Cholesterol 22 mg/dL 0-50 HDL Risk Factor 2.5 CALC 0.0-4.4 Laboratory test 07/10/2015 Altman Kyra ([facility]) Vitamin D25 87 30-100 7 finding Pthi 12/21/2013 [facility] [place] PTH Intact 5.2 pmol/L 1.3-9.3 Calcium (PTH Intact) 9.8 mg/dL 8.6-10.3 Laboratory test 12/21/2013 [facility] [place] C Reactive 4.27 mg/L < 5.00 8 finding Protein Lipid Profile 12/21/2013 Altman Kyra (a) Cholesterol 236 mg/dL High 120-200 Triglycerides 82 mg/dL 30-200 HDL Cholesterol 97 mg/dL High 30-85 LDL (Calculated) 123 CALC 0-129 VLDL Cholesterol 16 mg/dL 0-50 HDL Risk Factor 2.4 CALC 0.0-4.4 Comprehensive Metabolic 12/21/2013 Altman Kyra (a) Sodium 140 mEq/L 134-149 Prof Potassium 4.5 mEq/L 3.6-5.5 Chloride 105 mEq/L 94-112 Carbon Dioxide 25 mEq/L 21-32 Glucose 120 mg/dL High 70-105 9 BUN 17 mg/dL 6-26 Creatinine 0.8 mg/dL 0.6-1.4 BUN/Creat Ratio 21.3 CALC 8.0-36.0 Calcium 10.2 mg/dL 8.6-10.2 Total Protein 7.1 g/dL 6.3-8.1 Albumin 4.5 g/dL 3.8-5.5 Globulin 2.6 g/dL 2.0-4.8 A/G Ratio 1.7 CALC 0.6-2.3 Alk. Phosphatase 67 U/L 30-110 Alt (SGPT) 13 U/L 7-35 Ast (Sgot) 16 U/L 5-34 Total Bilirubin 0.6 mg/dL 0.2-1.3 Laboratory test finding 12/21/2013 Agapito Kyra ([facility]) TSH 2.59 mIU/L 0.50-6.00 10 Vitamin D25 80 30-100 Laboratory test 08/12/2013 [facility] Urine Culture No growth. finding [address] [place] [address] [phone] Ua - Micro (a) 08/12/2013 [facility] Appearance SLIGHTLY CLOUDY (607)- - Color YELLOW Glucose, Urine ([facility]/CTX) NEG Bilirubin SMALL # Unable To Confirm Ketones 40mg/dL # SP Grav >=1.030 Blood TRACE-INTACT # PH 5.5 Protein NEG Urobil 0.2 Nitrite NEG Leukocytes ([facility]) NEG Hyaline - /Lpf Granular - /Lpf WBC ([facility]) - RBC 3-4 # Mucus ([facility]/CBC/[facility]) - /Lpf Epith FEW /Lpf # Bacteria TRACE-1+ /Hpf # Amorphous ([facility]) - /Lpf Crystals, Fluid ([facility]/CMC/CTX) FEW # Triple Phosphates Z#Comments - Ua - Non Micro (a) 07/06/2013 [facility] Medicine Appearance yellow (607)- - Color clear Glucose neg Bilirubin neg Ketones neg SP Grav 1.010 Blood neg PH 5.5 Protein neg Urobil 0.2 Nitrite neg Leukocytes ([facility]) neg Comp Metabolic Panel 12/10/2012 [facility] Sodium 139 mmol/L 133-145 Potassium 4.6 mmol/L 3.5-5.0 Chloride 104 mmol/L 101-111 Co2 Carbon Dioxide 29.0 mmol/L 22-32 Anion Gap 6.0 mmol/L 2-11 Glucose 94 mg/dL 70-100 Blood Urea Nitrogen 14 mg/dL 6-24 Creatinine 0.70 mg/dL 0.50-1.40 BUN/Creatinine Ratio 20.0 8-20 Calcium 9.7 mg/dL 8.1-9.9 Total Protein 6.0 g/dL Low 6.2-8.1 Albumin 3.7 g/dL 3.2-5.2 Globulin 2.3 g/dL 2-4 Albumin/Globulin Ratio 1.6 1-3 Total Bilirubin 0.7 mg/dL 0.4-1.5 Alkaline Phosphatase 71 U/L 30-110 Alt 15 U/L 14-54 Ast 22 U/L 12-42 Egfr Non- 82.5 >60 Egfr 106.1 >60 11 Vitamin D, 25 Hydroxy 12/02/2012 [facility] [place] 25-Hydroxy Vitamin D2 <4.0 ng/mL 25-Hydroxy Vitamin D3 42 ng/mL 25-Hydroxy Vitamin D Total 42 ng/mL 12 CBC Auto Diff 09/05/2012 [facility] White Blood Count 7.5 10^3/uL 4.8-10.8 Red Blood Count 3.06 10^6/uL Low 4.0-5.4 Hemoglobin 9.9 g/dL Low 12.0-16.0 Hematocrit 30 % Low 35-47 Mean Corpuscular Volume 98 fL High 80-97 Mean Corpuscular Hemoglobin 32 pg High 27-31 Mean Corpuscular HGB Conc 33 g/dL 31-36 Red Cell Distribution Width 14 % 10.5-15 Platelet Count 407 10^3/uL 150-450 Mean Platelet Volume 8 um3 7.4-10.4 Abs Neutrophils 5.2 10^3/uL 1.5-7.7 Abs Lymphocytes 1.6 10^3/uL 1.0-4.8 Abs Monocytes 0.4 10^3/uL 0-0.8 Abs Eosinophils 0.2 10^3/uL 0-0.6 Abs Basophils 0 10^3/uL 0-0.2 Abs Nucleated RBC 0.01 10^3/uL Granulocyte % 69.6 % 38-83 Lymphocyte % 21.9 % Low 25-47 Monocyte % 6.0 % 1-9 Eosinophil % 2.1 % 0-6 Basophil % 0.4 % 0-2 Nucleated Red Blood Cells % 0.1 Laboratory test finding 09/05/2012 [facility] [place] Inr 0.92 0.87-0.97 13 Activated Partial Thrombo Time 26.9 sec 22.18-37.18 Laboratory test 09/05/2012 [facility] [place] B Type Natriuretic 321.0 pg/mL High 0-100 finding Peptide Comp Metabolic Panel 09/05/2012 [facility] [place] Sodium 139 mmol/L 133-145 Potassium 4.2 mmol/L 3.5-5.0 Chloride 103 mmol/L 101-111 Co2 Carbon Dioxide 28.0 mmol/L 22-32 Anion Gap 8.0 mmol/L 2-11 Glucose 95 mg/dL 70-100 Blood Urea Nitrogen 16 mg/dL 6-24 Creatinine 0.70 mg/dL 0.50-1.40 BUN/Creatinine Ratio 22.9 High 8-20 Calcium 9.2 mg/dL 8.1-9.9 Total Protein 6.5 g/dL 6.2-8.1 Albumin 3.2 g/dL 3.2-5.2 Globulin 3.3 g/dL 2-4 Albumin/Globulin Ratio 1.0 1-3 Total Bilirubin 0.5 mg/dL 0.4-1.5 Alkaline Phosphatase 99 U/L 30-110 Alt 19 U/L 14-54 Ast 18 U/L 12-42 Egfr Non- 82.5 >60 Egfr 106.1 >60 14 Laboratory test finding 09/05/2012 [facility] [place] Magnesium 2.2 mg/dL 1.7-2.6 Lipase 22 U/L 22-51 Troponin I 0.05 ng/mL 0-0.06 15 TSH (Thyroid Stimulating Horm) 1.43 miu/mL 0.34-5.60 C Reactive Protein 2.4 mg/dL High Less than 0.5 Basic Metabolic Panel 09/02/2012 [facility] [place] Sodium 139 mmol/L 133-145 Potassium 4.6 mmol/L 3.5-5.0 Chloride 101 mmol/L 101-111 Co2 Carbon Dioxide 29.0 mmol/L 22-32 Anion Gap 9.0 mmol/L 2-11 Glucose 107 mg/dL High 70-100 Blood Urea Nitrogen 13 mg/dL 6-24 Creatinine 0.80 mg/dL 0.50-1.40 BUN/Creatinine Ratio 16.3 8-20 Calcium 10.0 mg/dL High 8.1-9.9 Egfr Non- 70.7 >60 Egfr 90.9 >60 16 CBC No Diff 08/18/2012 [facility] [place] White Blood Count 5.2 10^3/uL 4.8-10.8 Red Blood Count 3.99 10^6/uL Low 4.0-5.4 Hemoglobin 13.0 g/dL 12.0-16.0 Hematocrit 39 % 35-47 Mean Corpuscular Volume 98 fL High 80-97 Mean Corpuscular Hemoglobin 33 pg High 27-31 Mean Corpuscular HGB Conc 33 g/dL 31-36 Red Cell Distribution Width 14 % 10.5-15 Platelet Count 177 10^3/uL 150-450 Mean Platelet Volume 9 um3 7.4-10.4 Laboratory test finding 08/18/2012 [facility] [place] Inr 0.78 Low 0.87-0.97 17 Basic Metabolic Panel 08/18/2012 [facility] [place] Sodium 138 mmol/L 133-145 Potassium 3.8 mmol/L 3.5-5.0 Chloride 104 mmol/L 101-111 Co2 Carbon Dioxide 26.0 mmol/L 22-32 Anion Gap 8.0 mmol/L 2-11 Glucose 95 mg/dL 70-100 Blood Urea Nitrogen 16 mg/dL 6-24 Creatinine 0.70 mg/dL 0.50-1.40 BUN/Creatinine Ratio 22.9 High 8-20 Calcium 9.3 mg/dL 8.1-9.9 Egfr Non- 82.5 >60 Egfr 106.1 >60 18 Comprehensive Metabolic 05/31/2012 Alt[facility] Kyra ([facility]) Albumin 5.1 g/dL 3.8-5.5 Prof Alk. Phos. 87 U/L 30-110 Alt (SGPT) 15 U/L 7-35 Ast (Sgot) 27 U/L 5-34 BUN 21 mg/dL 6-26 Calcium 10.0 mg/dL 8.6-10.2 Chloride 101 mEq/L 94-112 Creatinine 0.9 mg/dL 0.6-1.4 Carbon Dioxide 25 mEq/L 21-32 Glucose 106 mg/dL High 70-105 19 Sodium 136 mEq/L 134-149 Total Bilirubin 0.8 mg/dL 0.2-1.3 Total Protein 8.1 g/dL 6.3-8.1 Potassium 4.1 mEq/L 3.6-5.5 Globulin 3.0 g/dL 2.0-4.8 A/G Ratio 1.7 Calc 0.6-2.2 BUN/Creat Ratio 23.5 Calc 8.0-36.0 Lipid Profile 05/31/2012 Alt[facility] Kyra ([facility]) Cholesterol 317 mg/dL High 120-200 HDL 86 mg/dL High 30-85 Triglycerides 257 mg/dL High 30-200 HDL Risk Factor 3.7 CALC 0.0-4.4 LDL (Calculated) 180 CALC High 0-129 20 VLDL (Calculated) 51 mg/dL High 0-50 Laboratory test 05/31/2012 Altman Kyra (a) LDL (Direct) 140 mg/dL High 0-130 finding Ua - Non Micro ([facility]) 05/31/2012 [facility] Appearance clear (607)- - Color yellow Glucose, Urine ([facility]/CMC/CTX) neg Bilirubin neg Ketones neg SP Grav <1.005 Blood neg PH 5.5 Protein neg Urobil 0.2 Nitrite neg Leukocytes ([facility]) neg Laboratory 05/31/2012 [facility] Vitamin D, 25 41.8 30.0-100.0 21 test finding [address] Oh ng/[place] [address] [phone] Laboratory 02/06/2012 [facility] Sed Rate 13mm test finding (607)- - (a/[facility] x) Laboratory 02/06/2012 [facility] C-Reactive 1.5 mg/L 0.0-5.0 22 test finding [address] [place] [address] [phone] Surgical 09/08/2011 [facility] [place] Surgical -------- 23 Pathology Pathology -------- <SEE NOTE> Lipid Profile 05/20/2011 Altman Kyra ([facility]) Cholesterol 251 High 120- 200 mg/dL HDL 101 mg/dL High 30-85 Triglycerides 71 mg/dL 30-200 HDL Risk Factor 2.5 CALC 0.0-4.0 LDL (Calculated) 136 CALC High 0-129 VLDL (Calculated) 14 mg/dL 0-50 Comprehensive Metabolic 05/20/2011 Altman Kyra (a) Albumin 4.7 g/dL 3.8-5.5 Prof Alk. Phos. 74 U/L 30-110 Alt (SGPT) 14 U/L 7-35 Ast (Sgot) 22 U/L 5-34 BUN 12 mg/dL 6-26 Calcium 9.4 mg/dL 8.6-10.2 Chloride 108 mEq/L 94-112 Creatinine 0.7 mg/dL 0.6-1.4 Carbon Dioxide 26 mEq/L 21-32 Glucose 105 mg/dL 70-105 Sodium 139 mEq/L 134-149 Total Bilirubin 0.7 mg/dL 0.2-1.3 Total Protein 6.8 g/dL 6.3-8.1 Potassium 3.7 mEq/L 3.6-5.5 Globulin 2.1 g/dL 2.0-4.8 A/G Ratio 2.2 Calc 0.6-2.2 BUN/Creat Ratio 16.3 Calc 8.0-36.0 Laboratory test 05/20/2011 Alt[facility] Kyra ([facility]) TSH 1.45 mIU/L 0.50- 6.00 finding Laboratory test 05/20/2011 [facility] Vitamin D, 25 Oh 58.7 ng/mL 30.0- 100.0 24 finding [address] [place] [id number] [phone] Culture Stool 12/12/2010 [facility] [place] Stool Specimen BROWN 25, 26 Description Campylobacter Culture NF 27 O P: Giardia/Crypto Screen Giardia and cryp <SEE NOTE> 28 O P: Giardia/Crypto Screen NEGATIVE BY IMMU <SEE NOTE> 29 Fecal Lactoferrin (Stool WBC) TEST LIMITATIONS <SEE NOTE> 30 Fecal Lactoferrin (Stool WBC) NEGATIVE BY IMMU <SEE NOTE> 31 O&P: Giardia/Crypto 12/12/2010 [facility] [place] Fecal Lactoferrin NEGATIVE BY IMMU 32 Screen (Stool WBC) <SEE NOTE> Stool Cult Sensitivity NF 33 Campylobacter Culture NF 34 Fecal Lactoferrin (Stool WBC) TEST LIMITATIONS <SEE NOTE> 35 Fecal Lactoferrin 12/12/2010 [facility] [place] Fecal Lactoferrin TEST LIMITATIONS <SEE 36 (Stool WBC) (Stool WBC) NOTE> Fecal Lactoferrin (Stool WBC) NEGATIVE BY IMMU <SEE NOTE> 37 Laboratory test 12/12/2010 [facility] [place] Fecal Lactoferrin NEGATIVE BY 38 finding (Stool WBC) IMMU <SEE NOTE> Laboratory test 03/25/2010 [facility] Vitamin D,25 Oh SEE SCANNED finding [address] [place], [place] [id number] [phone] Comprehensive 01/31/2010 Alt[facility] Kyra ([facility]) Albumin 4.6 g/dL 3.8-5 Metabolic Prof .5 Alk. Phos. 71 U/L 30-110 Alt (SGPT) 15 U/L 7-35 Ast (Sgot) 19 U/L 5-34 BUN 21 mg/dL 6-26 Calcium 10.0 mg/dL 8.6-10.2 Chloride 100 mEq/L 94-112 Creatinine 0.9 mg/dL 0.6-1.4 Carbon Dioxide 26 mEq/L 21-32 Glucose 101 mg/dL 70-105 Sodium 142 mEq/L 134-149 Total Bilirubin 0.5 mg/dL 0.2-1.3 Total Protein 7.3 g/dL 6.3-8.1 Potassium 4.5 mEq/L 3.6-5.5 Globulin 2.7 g/dL 2.0-4.8 A/G Ratio 1.7 Calc 0.6-2.2 BUN/Creat Ratio 23.4 Calc 8.0-36.0 Lipid Profile 01/31/2010 Alt[facility] Kyra ([facility]) Cholesterol 288 mg/dL High 120-200 39 HDL 94 mg/dL High 30-85 40 Triglycerides 85 mg/dL 30-200 HDL Risk Factor 3.1 CALC Low 4.2-7.0 LDL (Calculated) 177 CALC High 0-129 VLDL (Calculated) 17 mg/dL 0-50 Ua - Non Micro ([facility]) 01/28/2010 [facility] Appearance CLEAR (607)- - Color YELLOW Glucose NEG Bilirubin NEG Ketones TRACE # SP Grav 1.025 Blood NEG PH 5.0 Protein NEG Urobil 0.2 E.U./dL Nitrite NEG Leukocytes ([facility]) NEG Vitamin D 25 04/12/2009 [facility] Vitamin D, 21.9 Low 32.0-100.0 41 Hydroxy 28 [facility] 25-Hydroxy ng/mL [place], [place] [id number] [phone] Laboratory test 02/08/2009 [facility] Clotest N^NEGATIV finding E^JENISE Iron/Tibc,%Sat 01/12/2009 [facility] Iron 56 g/dL 30-158 42 Group [address] [place] [address] [phone] Total Iron Binding Cap. 284 g/dL 250-450 % Iron Saturation 19.7 % 13.0-45.0 Laboratory test 01/12/2009 [facility] Transferrin 269 mg/dL 200-370 finding [address] [place] [address] [phone] Laboratory test 01/12/2009 [facility] Kyra ([facility]) Ferritin 43 ng/mL 15- 200 finding Manual 01/12/2009 [facility] ([facility]) S. Neutrophils 72 % 45-75 Differential B. Neutrophils 4 % 0-6 Lymphocytes 19 % Low 20-45 Monocytes 1 % 0-25 Eosinophils 4 % 0-5 Anisocytosis SLIGHT Abnormal None Platelet Estimate ADEQUATE Morphology SEE COMMENT Hemogram W/PLT 01/12/2009 [facility] Kyra ([facility]) WBC 7.8 x10^3/uL 3.6-9.6 HCT 36 % Low 36-50 HGB 12.0 g/dL Low 12.1-17.2 MCH 30.9 pg 27.6-33.3 MCV 92.2 fL 82.2-97.4 MCHC 33.5 g/dL 33.0-35.5 PLT 257 x10^3/uL 150-400 RBC 3.90 x10^6/uL 3.90-5.70 RDW 15.0 % High 11.6-13.7 Comprehensive Metabolic 12/18/2008 [facility] ([facility]) Albumin 4.6 g/dL 3.8-5.5 Prof Alk. Phos. 124 U/L High 30-110 43 Alt (SGPT) 41 U/L High 7-35 44 Ast (Sgot) 26 U/L 5-34 BUN 21 mg/dL 6-26 Calcium 10.0 mg/dL 8.6-10.2 Chloride 98 mEq/L 94-112 Creatinine 0.8 mg/dL 0.6-1.4 Carbon Dioxide 27 mEq/L 21-32 Glucose 109 mg/dL High 70-105 Sodium 137 mEq/L 134-149 Total Bilirubin 0.4 mg/dL 0.2-1.3 Total Protein 7.3 g/dL 6.3-8.1 Potassium 5.4 mEq/L 3.6-5.5 Globulin 2.8 g/dL 2.0-4.8 A/G Ratio 1.7 Calc 0.6-2.2 BUN/Creat Ratio 25.4 Calc 8.0-36.0 Laboratory test 12/18/2008 Agapito Rae ([facility]) TSH 2.17 mIU/L 0.50- 6.00 finding Manual Differential 12/18/2008 [facility]ap[facility] Rae ([facility]) S. Neutrophils 63 % 45-75 B. Neutrophils 9 % High 0-6 Metamyelocytes - Myelocytes - Promyelocytes - Nucleated RBC - Blast Cells - Lymphocytes 26 % 20-45 Atypical Lymphs - Monocytes 2 % 0-25 Eosinophils - Basophils - Polychromasia 1+ Abnormal None Hypochromasia 1+ Abnormal None Poikilocytosis - Target Cells - Spherocytosis - Anisocytosis SLIGHT Abnormal None Microcytosis - Sickle Cells - Basophilic Stippling - Vacuoles - Toxic Granulation - Macrocytosis - Platelet Estimate MARKEDLY INCREAS <SEE NOTE> Abnormal 45 Morphology - Morphology Comment 1 - Morphology Comment 2 - Morphology Comment 3 - Morphology Comment 4 - Hemogram W/PLT 12/18/2008 Agapito Rae ([facility]) WBC 9.8 x10^3/uL High 3.6- 9.6 HCT 36 % Low 36-50 HGB 11.7 g/dL Low 12.1-17.2 MCH 30.9 pg 27.6-33.3 MCV 93.8 fL 82.2-97.4 MCHC 32.9 g/dL Low 33.0-35.5 PLT 750 x10^3/uL High 150-400 46 RBC 3.79 x10^6/uL Low 3.90-5.70 RDW 15.2 % High 11.6-13.7 Laboratory test finding 12/18/2008 Agapito Rae ([facility]) Gran# 7.2 x10^3/uL 1.5-7.2 Gran% 73.4 % 42.2-75.2 Lymph# 2.1 x10^3/uL 0.7-4.9 Lymph% 21.6 % 20.5-51.1 Mo# 0.5 x10^3/uL 0.1-0.9 Mo% 5.0 % 1.7-9.3 MPV 8.0 fL 7.4-10.4 Surgical 04/20/2008 [facility] [place] <SEE 47 Pathology Pathology NOTE> Lipid Profile 03/21/2008 [facility] Cholesterol, 258 mg/dL High 120-2 48 28 [facility] Total [address] [place] [address] [phone] HDL Cholesterol 75 mg/dL High 40-60 LDL Cholesterol, Calc. 152 mg/dL AB <130 49 Triglycerides 154 mg/dL AB 50 LDL/HDL Cholesterol 2.0 51 Chol/HDL Cholesterol 3.4 52 Comprehensive 03/21/2008 [facility] Glucose 64 mg/dL Low 70-100 Metabolic 28 [place], [place] [id number] [phone] BUN 18 mg/dL 4-18 Creatinine, Serum 1.0 mg/dL 0.5-1.2 Sodium 142 mmol/L 136-146 Potassium 4.7 mmol/L 3.5-5.3 Chloride 106 mmol/L 98-110 Carbon Dioxide 27 mmol/L 20-32 Albumin 4.6 g/dL 3.5-4.7 Protein, Total 7.0 g/dL 6.4-8.3 Calcium 10.0 mg/dL 8.4-10.4 Alkaline Phosphatase 65 U/L 10-118 Sgot (Ast) 37 U/L 3-40 SGPT (Alt) 28 U/L 7-50 Bilirubin, Total 0.40 mg/dL 0.30-1.20 Laboratory test 03/21/2008 [facility] CA 125 9.3 U/mL 0.0-30.1 53 finding 28 [place], [place] [id number] [phone] GFR (Calculated) 59 AB 54 Laboratory test 03/21/2008 [facility] Thin Prep SEE NOTE 55 finding 28 [facility] W/HPV(Lsil/TESSA/Asc) [place], [place] [id number] [phone] Ua - Non Micro 03/21/2008 Family Medicine Appearance CLEAR (Fma) (607)- - Color YELLOW Glucose, Urine (Fma/CMC/CTX) NEG Bilirubin ICTO=NEG Ketones 15.mg/dL SP Grav 1.025 Blood NEG PH 5.5 Protein NEG Urobil 0.2 Nitrite NEG Leukocytes (Fma/CMC/[facility]) NEG CBC 09/20/2007 [facility] WBC 7.1 x103 4.3-10.9 56 28 [place] [id number] [phone] RBC 4.33 x106 3.80-5.30 Hemoglobin 13.5 g/dL 11.8-15.8 Hematocrit 42.1 % 35.0-47.0 MCV 97.2 fl 82.0-98.0 MCH 31.2 pg 27.5-33.5 MCHC 32.1 g/dL 32.0-36.0 RDW 14.2 % 11.5-14.5 Platelet Count 239 x103 130-400 MPV 12.4 fl High 6.5-10.5 Segmented Neutrophils 42.9 % Low 44.0-74.0 Lymphocytes 47.9 % High 15.0-45.0 Monocytes 6.8 % 2.0-13.0 Eosinophils 2.0 % 0.0-6.0 Basophils 0.4 % 0.0-2.0 Neutrophil Absolute 3.0 x103 1.4-7.0 Lymphocytes Absolute 3.4 x103 1.0-3.4 Monocyte Absolute 0.5 x103 0.2-1.0 Eosinophil Absolute 0.1 x103 0.0-0.5 Basophil Absolute 0.0 x103 0.0-0.2 CBC With Electronic Diff Stat 10/22/2006 [facility] [place] Blood Count 5.6 CUMM 4.8-10.8 Abs Basophils 0 0-0.2 Abs Eosinophils 0.1 0-0.6 Absolute Neutrophil Count 3.0 1.5-7.7 Abs Lymphs 2.1 1.0-4.8 Abs Mononuclear 0.3 0-0.8 Basophil % 0.6 % 0-2 Hematocrit 38 % 35-47 Hemoglobin 13.1 g/dL 12.0-16.0 Eosinophil % 1.1 % 0-6 Gran % 54.2 % 38-83 Lymph % 38.1 % 20-45 Mean Corpuscular HGB Cone 34 g/dL 32-36 Mean Corpuscular Hemoglob 32 pg High 27-31 Mean Corpuscular Volume 92 um3 79-97 Mean Platelet Volume 9.5 um3 7.4-10.4 Mononuclear % 6.0 % 1-9 Platelet Count 205 CUMM 150-450 Red Cell Count 4.15 CUMM Low 4.2-5.4 Redcell Distribution WDTH 14 % 10.5-15 Basic Metabolic Panel Stat 10/22/2006 [facility] [place] One Over Creatinine 1.25 Anion Gap 11.0 mmol/L 2-11 57 BUN 20 mg/dL 6-24 Calcium 9.1 mg/dL 8.7-10.2 Chloride 103 mmol/L 101-111 Co2 (Carbon Dioxide) 23.0 mmol/L 22-32 Glucose 134 mg/dL High 70-105 Potassium 4.3 mmol/L 3.5-5.0 Sodium 137 mmol/L 135-145 BUN/Creatinine Ratio 25.0 High 8-20 Creatinine 0.8 mg/dL 0.5-1.4 Laboratory test 10/22/2006 [facility] [place] Troponin-I 0.02 NG/ML 0-0.06 58 finding (TnI) Comment 09/30/2005 Family Medicine Misc HORMONE See Images (607)- - EVALUATION Laboratory test 09/23/2005 [facility] Labs BMP;TROP;CBC See Image finding Report Comprehensive 06/30/2005 [facility] Glucose 81 mg/dL 70-100 59 Metabolic 28 [place] [address] [phone] BUN 24 mg/dL High 4-18 Creatinine, Serum 1.0 mg/dL 0.5-1.2 Sodium 139 mmol/L 136-146 Potassium 4.4 mmol/L 3.5-5.3 Chloride 102 mmol/L 98-110 Carbon Dioxide 29 mmol/L 20-32 Albumin 4.4 g/dL 3.5-4.7 Protein, Total 7.3 g/dL 6.4-8.2 Calcium 10.0 mg/dL 8.4-10.4 Alkaline Phosphatase 72 U/L 10-118 Sgot (Ast) 31 U/L High 3-30 SGPT (Alt) 21 U/L 7-40 Bilirubin, Total 0.37 mg/dL 0.30-1.20 CBC 06/30/2005 [facility] WBC 7.2 x103 4.3-10.9 28 [place] [address] [phone] RBC 4.42 x106 3.80-5.30 Hemoglobin 14.3 g/dL 11.8-15.8 Hematocrit 42.3 % 35.0-47.0 MCV 95.5 fl 82.0-98.0 MCH 32.3 pg 27.5-33.5 MCHC 33.8 g/dL 32.0-36.0 RDW 13.5 % 11.5-14.5 Platelet Count 231 x103 130-400 MPV 9.9 fl 6.5-10.5 Segmented Neutrophils 53.7 % 44.0-74.0 Lymphocytes 37.0 % 15.0-45.0 Monocytes 6.1 % 2.0-13.0 Eosinophils 2.9 % 0.0-6.0 Basophils 0.3 % 0.0-2.0 Neutrophil Absolute 3.9 x103 1.4-7.0 Lymphocytes Absolute 2.7 x103 1.0-3.4 Monocyte Absolute 0.4 x103 0.2-1.0 Eosinophil Absolute 0.2 x103 0.0-0.5 Basophil Absolute 0.0 x103 0.0-0.2 Laboratory test 06/30/2005 [facility] T-4 Free 1.3 ng/dL 0.8-1.8 finding 28 [place] [address] [phone] Free T-3 2.4 pg/mL 2.3-4.2 TSH (Thyrotropin) 1.500 uIU/ml 0.350-5.500 Urinalysis W/ Micro If 06/30/2005 [facility] Color YELLOW Yellow Indicated [address] [place] [address] [phone] Appearance CLEAR Clear Specific [place] 1.010 1.005-1.030 Leukocytes NEGATIVE Negative Nitrite NEGATIVE Negative PH 6.5 5.0-8.0 Protein NEGATIVE mg/dL Negative Glucose NEGATIVE mg/dL Negative Ketones NEGATIVE mg/dL Negative Urobilinogen NORMAL mg/dL Normal Or <1 Bilirubin NEGATIVE Negative Occult Blood NEGATIVE Negative Laboratory test 06/30/2005 [facility] GFR (Calculated) 59 AB 60 finding 28 [place] [address] [phone] Microscopic, Reflex NOT INDICATED CBC 04/25/2004 [facility] WBC 7.1 x10*3 4.3 - 10.9 28 [place] [address] [phone] RBC 4.29 x10*6 3.8 - 5.3 Hemoglobin 13.0 g/dL 11.8 - 15.8 Hematocrit 39.7 % 35.0 - 47.0 MCV 92.5 fl 82.0 - 98.0 MCH 30.2 pg 27.5 - 33.5 MCHC 32.7 g/dL 32.0 - 36.0 RDW 15.5 % High 11.5 - 14.5 Platelet Count 239 x10*3 130.0 - 400.0 MPV 10.3 fl 6.5 - 10.5 Segmented Neutrophils 45.2 % 44.0 - 74.0 Lymphocytes 44.0 % 15.0 - 45.0 Monocytes 6.9 % 2.0 - 13.0 Eosinophils 3.6 % 0.0 - 6.0 Basophils 0.3 % 0.0 - 2.0 Neutrophil Absolute 3.2 x10*3 1.4 - 7.0 Lymphocytes Absolute 3.1 x10*3 1.0 - 3.4 Monocyte Absolute 0.5 x10*3 0.2 - 1.0 Eosinophil Absolute 0.3 x10*3 0.0 - 0.5 Basophil Absolute 0.0 x10*3 0.0 - 0.2 Anisocytosis 1+ AB Comprehensive 04/25/2004 [facility] Glucose 86 mg/dL 61.0 - 110.0 Metabolic 28 [place] [address] [phone] BUN 19 mg/dL High 4.0 - 18.0 Creatinine, Serum 1.0 mg/dL 0.5 - 1.2 Sodium 145 mmol/L 136.0 - 146.0 Potassium 4.8 mmol/L 3.5 - 5.3 Chloride 108 mmol/L High 98.0 - 107.0 Carbon Dioxide 25 mmol/L 20.0 - 32.0 Albumin 4.4 g/dL 3.5 - 4.7 Protein, Total 7.1 g/dL 6.4 - 8.2 Calcium 9.9 mg/dL 8.4 - 10.6 Alkaline Phosphatase 87 U/L 10.0 - 118.0 Sgot (Ast) 25 U/L 3.0 - 30.0 SGPT (Alt) 18 U/L 7.0 - 40.0 Bilirubin, Total 0.31 mg/dL 0.3 - 1.2 Lipid Profile 04/25/2004 [facility] Triglycerides 69 mg/dL 61 28 [place] [address] [phone] Cholesterol, Total 224 mg/dL High 120.0 - 200.0 62 HDL Cholesterol 86 mg/dL High 40.0 - 60.0 LDL Cholesterol, Calc. 124 mg/dL AB <130 63 LDL/HDL Cholesterol 1.4 64 Chol/HDL Cholesterol 2.6 65 Laboratory test 04/25/2004 [facility] Thyrotropin 1.950 0.35 - finding 28 [facility] (TSH) uIU/ml 5.5 [place] [address] [phone] GFR (Calculated) 60 66 Laboratory test 04/24/2004 [facility] Thinprep W/HPV see image finding 28 [facility] LGSIL (TESSA/ASCUS) [place] [address] [phone] Ua - Non Micro 04/24/2004 [facility] Medicine Appearance CLEAR ([facility]) (607)- - Color LT YELLOW Glucose NEG Bilirubin NEG Ketones NEG SP Grav 1.015 Blood NEG PH 7.0 Protein NEG Urobil 0.2 Nitrite NEG Leukocytes NEG CBC Electronic ([facility]) 02/16/2004 [facility] Medicine WBC 6.6 3.6-9.6 (607)- - Lymphocytes 41.7 % 20.5 - 51.1 Monocytes 7.4 % 1.7-9.3 Granulocytes 50.9 % 42.2 - 75.2 Lymphocytes 2.8 10^3/uL 0.7 - 4.9 Monocytes 0.5 10^3/uL 0.1 - 0.9 Granulocytes 3.4 10^3/uL 1.5 - 7.2 RBC 3.87 Low 3.90-5.70 Hemoglobin (a/CMC/CTX) 12.4 g/dL 12.1 - 17.2 Hematocrit (a/CMC/CTX) 37.0 % 36.1 - 50.3 Mean Corpuscular Vol 95.8 82.2-97.4 Mean Corpuscular Hemaglobin 32.1 27.6-33.3 Mean Corpuscular Hemo Concen 33.5 33.0-35.5 RDW 14.5 High 11.6-13.7 Platelets 230. 10^3/ul 150-400 Mean Platelet Volume 8.3 7.4-10.4 Laboratory test finding 01/14/2004 [facility] [place] Anisocytosis SLIGHT Hypochrom SLIGHT Platelet Eval INCREASED CBC W/ Manual Diff ([facility] [place]) 01/14/2004 [facility] WBC 8.1 CUMM 4.8-10.8 RBC 3.18 CUMM Low 4.2-5.4 Hemoglobin (Fma/CMC/CTX) 10.1 g/dL Low 12.0-16.0 Hematocrit (Fma/CMC/CTX) 30 % Low 35-47 Mean Corpuscular Vol 96 UM3 79-97 Mean Corpuscular Hemaglobin 32 pg High 27-31 Mean Corpuscular Hemo Concen 33 g/dL 32-36 RDW 15 10.5-15 Platelets 553 CUMM High 150-450 Mean Platelet Volume 8.0 7.4-10.4 Poly From [facility] [place] 63 38-83 Band - 0-8 Lymph From [facility] 31 5-47 Monocytes 6 % 0-13 Eosinophils - 0-6 Atypical Lymph - 0-6 Morphology - Basophils - Laboratory test finding 01/14/2004 [facility] [place] Aptt 28.9 SEC 21.6-31.2 D Dimer Quant ([facility]) POSITIVE ng/ML High Negative PT/Inr (Fma/CMC) 01/14/2004 [facility] [place] PT--Therapy 18.8 SEC High 10.7-13.1 (Protime/[facility]) Inr 2.40 67 Laboratory test finding 01/14/2004 [facility] [place] Troponin-I/TnI 0.01 ng/mL 0-0.06 68 Basic Metabolic ([facility]) 01/14/2004 [facility] [place] Sodium 139 mmol/L 135-145 Potassium 4.1 mmol/L 3.5-5.0 Chloride 107 mmol/L 101-111 Co2 25.0 mmol/L 22-32 Anion Gap 7.0 mmol/L 2-11 Glucose, Serum (Fma/CMC/CTX) 103 mg/dL 70-105 BUN (Fma/CMC/[facility]) 17 mg/dL 6-24 Creatinine (Fma/CMC/CTX) 0.7 mg/dL 0.5-1.4 BUN/Creatinin Ratio 24.3 High 8-20 Calcium (Fma/CMC/[facility]) 9.1 mg/dL 8.7-10.2 PT/Inr 01/09/2004 Family Medicine PT--Therapy 19.9 SEC High 10-14 (Fma/CMC) (607)- - (Protime/[facility]) Inr 2.7 2.0-3.0 Laboratory test 04/29/2003 Hospital (General) Comments UA NO MICRO finding Laboratory test 04/12/2002 Hospital (General) Comments CBC;TSH;COMP Lipid;Ua No finding MET Micr Laboratory test 12/21/2001 Hospital (General) Comments UA NO MICRO finding 1 RESULTS VERIFIED BY REPEAT ANALYSIS 2 consistent w/ previous results 3 Because ethnic data is not always readily available, this report includes an eGFR for both -Americans and non- Americans. The National Kidney Disease Education Program (NKDEP) does not endorse the use of the MDRD equation for patients that are not between the ages of 18 and 70, are , have extremes of body size, muscle mass, or nutritional status, or are non- or non-. According to the National Kidney Foundation, irrespective of diagnosis, the stage of the disease is based on the level of kidney function: Stage Description GFR(mL/min/1.73 m(2)) 1 Kidney damage with normal or decreased GFR 90 2 Kidney damage with mild decrease in GFR 60-89 3 Moderate decrease in GFR 30-59 4 Severe decrease in GFR 15-29 5 Kidney failure <15 (or dialysis) 4 Reference Range and Interpretation: TnI (ng/mL) Interpretation Less Than 0.03 ng/mL Not supportive of diagnosis of [place] 0.03 - 0.50 ng/mL Indeterminate: suggest serial studies if clinically indicated. Greater than 0.5 ng/mL Consistent with diagnosis of [place] 5 SEE RESULT BELOW Name: CASSIDYWOODY : [address]: Sushil Shabazz MD Acct: [id number] Unit: [id number] AGE: 75 Location: [facility] Re08/01/15 SEX: F Status: REG REF SPEC: [id number] JACK: 08/01/[address]: Sushil Shabazz MD REQ: [id number] RECD: 08/01/15 STATUS: COMP _ SOURCE: URINE SPDESC: ORDERED: Urine Culture COMMENTS: URINE IN VACUTAINER Procedure Result Reported Site Urine Culture Final 08/02/15- 2 ML No Growth (<1,000 CFU/mL) * ML - MAIN LAB ([facility]) . END OF REPORT * ML=Testing performed at Main Lab DEPARTMENT OF PATHOLOGY, [address] [place] [address] Lucio Mcgovern M.D. Director [facility] # [id number] 6 consistent w/ previous results 7 FASTING 8 Acute inflammation: >10.00 9 RESULTS VERIFIED BY REPEAT ANALYSIS 10 FASTING 11 Because ethnic data is not always readily available, this report includes an eGFR for both -Americans and non- Americans. The National Kidney Disease Education Program (NKDEP) does not endorse the use of the MDRD equation for patients that are not between the ages of 18 and 70, are , have extremes of body size, muscle mass, or nutritional status, or are non- or non-. According to the National Kidney Foundation, irrespective of diagnosis, the stage of the disease is based on the level of kidney function: Stage Description GFR(mL/min/1.73 m(2)) 1 Kidney damage with normal or decreased GFR 90 2 Kidney damage with mild decrease in GFR 60-89 3 Moderate decrease in GFR 30-59 4 Severe decrease in GFR 15-29 5 Kidney failure <15 (or dialysis) 12 -- REFERENCE VALUE -- 25-HYDROXY D TOTAL (D2+D3) Optimum levels in the normal population are 25-80 Test Performed by: [place] [address] Steel Estimator: Brenden Lanier III, M.D. 13 Please note the change in INR reference range effective 12. The INR(International Normalized Ratio) was adopted by the World Health Organization (WHO) in 1983 as a standardized system of reporting PT (Prothrombin Time). The Centers for Disease Control (CDC) states that reporting of PT results in INR only is the preferred method. Recommended INR for Patients on Oral Anticoagulants Prophylaxis 2.0 - 3.0 Treatment of thrombosis 2.0 - 3.0 Prevention of embolism 2.0 - 3.0 Prevention of embolism from prosthetic heart valves 2.5 - 3.5 14 Because ethnic data is not always readily available, this report includes an eGFR for both -Americans and non- Americans. The National Kidney Disease Education Program (NKDEP) does not endorse the use of the MDRD equation for patients that are not between the ages of 18 and 70, are , have extremes of body size, muscle mass, or nutritional status, or are non- or non-. According to the National Kidney Foundation, irrespective of diagnosis, the stage of the disease is based on the level of kidney function: Stage Description GFR(mL/min/1.73 m(2)) 1 Kidney damage with normal or decreased GFR 90 2 Kidney damage with mild decrease in GFR 60-89 3 Moderate decrease in GFR 30-59 4 Severe decrease in GFR 15-29 5 Kidney failure <15 (or dialysis) 15 Reference Range and Interpretation: TnI (ng/ml) Interpretation Less Than 0.06 ng/mL Not supportive of diagnosis of [place] 0.06 - 0.50 ng/ml Indeterminate: suggest serial studies if clinically indicated. Greater than 0.5 ng/mL Consistent with diagnosis of IL 16 Because ethnic data is not always readily available, this report includes an eGFR for both -Americans and non- Americans. The National Kidney Disease Education Program (NKDEP) does not endorse the use of the MDRD equation for patients that are not between the ages of 18 and 70, are , have extremes of body size, muscle mass, or nutritional status, or are non- or non-. According to the National Kidney Foundation, irrespective of diagnosis, the stage of the disease is based on the level of kidney function: Stage Description GFR(mL/min/1.73 m(2)) 1 Kidney damage with normal or decreased GFR 90 2 Kidney damage with mild decrease in GFR 60-89 3 Moderate decrease in GFR 30-59 4 Severe decrease in GFR 15-29 5 Kidney failure <15 (or dialysis) 17 Please note the change in INR reference range effective 12. The INR(International Normalized Ratio) was adopted by the World Health Organization (WHO) in 1983 as a standardized system of reporting PT (Prothrombin Time). The Centers for Disease Control (CDC) states that reporting of PT results in INR only is the preferred method. Recommended INR for Patients on Oral Anticoagulants Prophylaxis 2.0 - 3.0 Treatment of thrombosis 2.0 - 3.0 Prevention of embolism 2.0 - 3.0 Prevention of embolism from prosthetic heart valves 2.5 - 3.5 18 Because ethnic data is not always readily available, this report includes an eGFR for both -Americans and non- Americans. The National Kidney Disease Education Program (NKDEP) does not endorse the use of the MDRD equation for patients that are not between the ages of 18 and 70, are , have extremes of body size, muscle mass, or nutritional status, or are non- or non-. According to the National Kidney Foundation, irrespective of diagnosis, the stage of the disease is based on the level of kidney function: Stage Description GFR(mL/min/1.73 m(2)) 1 Kidney damage with normal or decreased GFR 90 2 Kidney damage with mild decrease in GFR 60-89 3 Moderate decrease in GFR 30-59 4 Severe decrease in GFR 15-29 5 Kidney failure <15 (or dialysis) 19 result sherie'd 20 invalid 21 Vitamin D deficiency has been defined by the [place] of [employer] and an Endocrine Society practice guideline as a level of serum 25-OH vitamin D less than 20 ng/mL (1,2). The Endocrine Society went on to further define vitamin D insufficiency as a level between 21 and 29 ng/mL (2). 1. IOM ([place] of Medicine). 2010. Dietary reference intakes for calcium and D. [place]: The National Academies Press. 2. Benny BEATTY, Gladis HILLS, Justice SOMERS, et al. Evaluation, treatment, and prevention of vitamin D deficiency: an Endocrine Society clinical practice guideline. JCEM. 2010; 96(7):1911-30. 22 1SST 23 ---- RUN DATE: 09/09/11 [facility] NMI LIVE PAGE 1 RUN TIME: 1400 Specimen Inquiry RUN USER: INTERFACE -- Name: WOODY RAMOS Status: REG REF Re09/08/11 Age/Sex: 71/F Unit#: [id number] Location: [facility]. : 41 -- Specimen: [id number] SOUT Spec Date:09/08/11- Dr: Blanco bowman MD Spec Type: SURGICAL P Received:09/08/11-1208 Copies to: Sushil linares MD SPECIMEN BIOPSY RECTAL POLYP HISTORY POST-OP DIAGNOSIS: Screening. EGD normal. Colon - diveticulosis, rectal polyp. CLINICAL INFORMATION: Reflux. Hematochezia. GROSS DESCRIPTION The specimen is received in formalin labelled Woody Ramos, Biopsy Rectal Polyp, and consists of a castillo soft tissue fragment measuring 0.5 x 0.2 x 0.1 cm. Submitted entirely, one cassette. DIAGNOSIS Colon, rectum, biopsy: Hyperplastic polyp. Signed Electronically by: LUCIO MCGOVERN MD 09/09/11 1349 -- -- DEPARTMENT OF PATHOLOGY, [address] [place] [address] [facility] Permit #[id number] Lucio Mcgovern M.D. Director Mandeep Stephens M.D. Concession Cashier Dir noemy -- 24 Vitamin D deficiency has been defined by the [place] of Medicine and an Endocrine Society practice guideline as a level of serum 25-OH vitamin D less than 20 ng/mL (1,2). The Endocrine Society went on to further define vitamin D insufficiency as a level between 21 and 29 ng/mL (2). 1. IOM ([place] of Medicine). 2011. Dietary reference intakes for calcium and D. [place]: The National Academies Press. 2. Benny MF, Gladis [place], Justice SOMERS, et al. Evaluation, treatment, and prevention of vitamin D deficiency: an Endocrine Society clinical practice guideline. JCEM. 2010; 96(7):1911-30. Please note reference interval change 25 C. DIFFICILE TOXIN TESTING IS NOT PERFORMED ON FORMED STOOL SPECIMENS. TEST OF CURE ON POSITIVE PATIENTS IS NOT RECOMMENDED. VERBAL TO MARY JANE ORTIZ/THANG ARIZA'S OFFICE BY [facility] at 1526 on 12/12/10. 26 FIRM FORMED 27 NO PATHOGENS TO DATE FINAL REPORT PENDING COMPLETION OF INCUBATION PERIOD 28 Giardia and cryptosporidium antigen testing performed by immunoassay. If patient is immunocompromised or has traveled to or is from a developing country, a full ova and parasite exam with microscopic (OPMIC) is recommended. All samples will be held one month in case full ova and parasite testing is requested. Contact the Microbiology Department at [phone]. TEST LIMITATIONS: As with all diagnostic procedures, the results obtained should be used in conjunction with other clinical information available the physician. Negative results can occur in samples containing antigen below lower limits of detection of the assay. The use of colonic washes, aspirates or other diluted sample types has not been established and could affect the performance of the assay. Stool samples contaminated with an oily or particulate base (eg. Barium, mineral oil etc.) could interfere with the test and are not recommended. 29 NEGATIVE BY IMMUNOASSAY NEGATIVE BY IMMUNOASSAY 30 TEST LIMITATIONS: Assay detects elevated levels of lactoferrin released from fecal leukocytes as a marker of intestinal inflammation. The test may not be appropriate in immunocompromised persons. Fecal samples from breast fed infants should not be used with this assay. 31 NEGATIVE BY IMMUNOASSAY 32 NEGATIVE BY IMMUNOASSAY 33 NEGATIVE FOR THE ENTERIC PATHOGENS - SALMONELLA, SHIGELLA, AEROMONAS, PLESIOMONAS AND YERSINIA. VIBRIO AND E. COLI 0157 NOT ROUTINELY TESTED FOR IN A STOOL CULTURE. PLEASE SUBMIT SAMPLE WITH SPECIFIC REQUEST FOR DESIRED ORGANISM(S). 34 NO GROWTH OF CAMPYLOBACTER AFTER 48 HOURS 35 TEST LIMITATIONS: Assay detects elevated levels of lactoferrin released from fecal leukocytes as a marker of intestinal inflammation. The test may not be appropriate in immunocompromised persons. Fecal samples from breast fed infants should not be used with this assay. 36 TEST LIMITATIONS: Assay detects elevated levels of lactoferrin released from fecal leukocytes as a marker of intestinal inflammation. The test may not be appropriate in immunocompromised persons. Fecal samples from breast fed infants should not be used with this assay. 37 NEGATIVE BY IMMUNOASSAY 38 NEGATIVE BY IMMUNOCHROMATOGRAPHIC ASSAY NEGATIVE BY IMMUNOCHROMATOGRAPHIC ASSAY 39 RESULT SHERIE'D 40 RESULT SHERIE'D 41 Recent studies consider the lower limit of 32.0 ng/mL to be a threshold for optimal health. Leighton JOSEPH. J Nutr. 2005 Jul;135(2):317-22. 42 1SST 43 result rechecked 44 result rechecked 45 MARKEDLY INCREASED 46 result rechecked 47 ---- RUN DATE: 04/21/08 [facility] NMI LIVE PAGE 1 RUN TIME: 1343 Specimen Inquiry RUN USER: INTERFACE -- Name: BALTAZAR RAMOS Status: REG REF Re04/20/08 Age/Sex: 68/F Unit#: [id number] Location: [facility] : 41 -- Specimen: [id number] Spec Date: 04/20/[address]: Blanco chavez MD Spec Type: SURGICAL P Received: 04/20/08-1151 Copies to: Sushil linares MD SPECIMEN BIOPSY RECTAL POLYP HISTORY CLINICAL INFORMATION: Alternating constipation and diarrhea, hematochezia GROSS DESCRIPTION The specimen is received in formalin labelled Baltazar Ramos, Biopsy Rectal Polyp, and consists of one fragment of castillo-yellow tissue measuring 0.3 x 0.3 x 0.2 cm. Submitted entirely, one cassette. DIAGNOSIS Rectum, polyp, biopsy: Hyperplastic polyp. Dictated by Mandeep Stephens M.D. Reviewed by Lucio Mcgovern M.D. and I concur with the above rendered diagnosis. Signed Electronically by: LUCIO MCGOVERN MD 04/21/08 1343 -- -- DEPARTMENT OF PATHOLOGY, [address] [place] [address] [facility] Permit #[id number] Lucio Mcgovern M.D. Director of Laboratories -- 48 Cholesterol Risk Levels (NIH) Recommended: under 200 mg/dl Borderline : 200-239 mg/dl High Risk : Above 240 mg/dl 49 The National Cholesterol Education Program recommends the following ranges for LDL Cholesterol: Optimal under 100 mg/dl Near or above Optimal 100 - 129 mg/dl Borderline High 130 - 159 mg/dl High 160 - 189 mg/dl Very High above 190 mg/dl 50 Triglyceride Risk Levels: Normal : <150 mg/dl Borderline : 150-199 mg/dl High : 200-499 mg/dl Very High : >500 mg/dl 51 LDL/HDL Risk Ratio Levels MALE FEMALE 1/2 X Average 1.00 1.47 Average 3.55 3.22 2 X Average 6.25 5.03 3 X Average 7.99 6.14 52 CHOL/HDL Risk Ratio Levels MALE FEMALE 1/2 X Average 3.4 3.3 Average 5.0 4.4 2 X Average 9.5 7.0 3 X Average 24.0 11.0 53 . Serum levels of this cancer antigen should not be interpreted as absolute evidence of the presence or absence of disease. This result value should be used in conjunction with information obtained from clinical diagnostic procedures. This assay should not be used as a cancer screening test. . Values with different assay methods or kits cannot be used interchangeably. Results obtained using [employer] ICMA methodology. . 54 mL/min/1.73m2 . Normal Function or Mild Renal Disease, if clinically at risk: >or=60 Moderately decreased: 30 - 59 Severely decreased: 15 - 29 Renal Failure: <15 . Please note that the MDRD equation requires an additional adjustment for -Americans (multiply the GFR result by 1.210). . Glomerular Filtration Rate (GFR) is estimated based on the MDRD equation, which assumes a steady state for creatinine (Julee Int Med 139/2 137-149, 2003), as recommended by the National Kidney Disease Education Program in conjunction with the National Institutes of Health and the National Kidney Foundation. . Clinical conditions in which it may be necessary to measure GFR by using clearance methods include extremes of age and body size, severe malnutrition or obesity, diseases of skeletal muscle, paraplegia or quadriplegia, vegetarian diet, rapidly changing kidney function, and calculation of the dose of potentially toxic drugs that are excreted by the kidneys. 55 [facility] [employer] DEPARTMENT OF PATHOLOGY or Extension [id number] CABLE INSTALLER REPAIRER HELPER CYTOLOGY REPORT PATIENT: BALTAZAR RAMOS : 1940 AGE: 68 Y SEX: F ACCT: [id number] PROCEDURE DATE: 03/21/2008 DATE RECEIVED: 03/23/2008 REQUESTING PHYSICIAN: SUSHIL SHABAZZ MD LOCATION: [facility] [place] Case No. [id number] PATIENT DATA: [id number] PREVIOUS THERAPY: BIO-IDENTICAL HORMONE SPECIMEN SUBMITTED: * * (HPVII) THIN PREP W/HPV (LSIL/ASC/TESSA) * * ENDOCERVICAL RELEVANT HISTORY: Menopause: Y : 1 Para: 3 Prev.normal: 04/18 SPECIMEN ADEQUACY SATISFACTORY FOR EVALUATION. THE PRESENCE OF TRANSFORMATION ZONE COMPONENT CANNOT BE DETERMINED DUE TO ATROPHIC CHANGES. GENERAL CATEGORIZATION NEGATIVE FOR INTRAEPITHELIAL LESIONS OR MALIGNANCY ADDITIONAL COPIES SENT TO: Screened/Rescreened by: Electronically Signed by: [email or web address] CECEILIA STONE, CT(ASCP) Signed Date and Time: 03/24/2008 14:21 Thin Prep Pap tests are examined with an FDA-approved location-guidance system (19564). Performed @ [facility] [address] [place] [id number] LAV 57 Anion gap measurement may be of limited value in the presence of any alkalosis, especially in a combined acid base disorder. . 58 New Reference Range and Interpretation effective 03/18/02 TnI (ng/ml) INTERPRETATION <0.06 ng/ml NOT SUPPORTIVE OF DIAGNOSIS OF [place] 0.06 - 0.50 ng/ml INDETERMINATE: SUGGEST SERIAL STUDIES IF CLINICALLY INDICATED. > 0.5 ng/ml CONSISTENT WITH DIAGNOSIS OF [place] . 59 2 SST TUBES; 1 LAV TOP TUBE; 1 URINE 60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
--- NOTE | 2018-07-29 19:06 | ED ---
Headache - HPI Summary HPI Summary: 78 year [facility] F [place] [facility] [place] Shab[place] accompanied by father with a chief complaint of headache described as sharp, pulsing, and throbbing located in the front of her head since three months ago. The patient rates the pain 3/10 in severity. Symptoms aggravated by exercise. Symptoms alleviated by nothing. Patient reports lightheadedness when she sits up fast and left arm numbness. - History Of Current Complaint Chief Complaint: EDHeadache Stated Complaint: HEADACHE Time Seen by Provider: 07/29/18 18:57 Hx Obtained From: Patient Onset/Duration: Started weeks ago - 3 days ago, Still Present Initially Headache Was: Mild Currently Pain Is: Current Pain Scale(0-10)= - 3 Character: Sharp, Throbbing - and throbbing Location of Headache: Frontal Aggravating Factor: Nothing Allevating Factors: Nothing Associated Signs And Symptoms: Other (Noted In Comments) - lightheadedness, right arm numbness - Allergies/Home Medications Allergies/Adverse Reactions: Allergies Allergy/AdvReac Type Severity Reaction Status Date / Time Penicillins Allergy Hives Verified 07/29/18 17:01 PMH/Surg Hx/FS Hx/Imm Hx Previously Healthy: No Endocrine/Hematology History: Reports: Hx Anemia Denies: Hx Diabetes Cardiovascular History: Reports: Hx Valvular Heart Disease - AORTIC VALVE, Other Cardiovascular Problems/Disorders - AORTIC VALVE REPLACEMENT 08/23/12 Denies: Hx Hypercholesterolemia, Hx Hypertension, Hx Pacemaker/ICD Respiratory History: Denies: Hx Asthma, Hx Chronic Obstructive Pulmonary Disease (COPD) Musculoskeletal History: Reports: Other Musculoskeletal History - BILATERAL HIP REPLACEMENT Denies: Hx Rheumatoid Arthritis Sensory History: Reports: Hx Cataracts - BILATERAL, Hx Contacts or Glasses - GLASSES Denies: Hx Hearing Aid Opthamlomology History: Reports: Hx Cataracts - BILATERAL, Hx Contacts or Glasses - GLASSES Psychiatric History: Denies: Hx Panic Disorder - Cancer History Hx Chemotherapy: No Hx Radiation Therapy: No - Surgical History Surgery Procedure, Year, and Place: 2003 & 2008 bilat hip replacements [facility]LEX. aortic valve replacement [place] ( [place] PERICARDIAL TISSUE VALVE - 3300TF,SERIAL #[id number], MR CONDITIONAL -MAX SPAT GRAD. 720GAUSS/CM- THIS IS PER PT READING CARD TO ME OVER PHONE-EXPLAINED TO HER THAT SHE NEEDED TO BRING CARD WITH HER -IF NOT WE CAN NOT SCAN HER). Hx Anesthesia Reactions: No - SLOW TO WAKE UP Infectious Disease History: No Infectious Disease History: Denies: Traveled Outside the [place] in Last 30 Days - Family History Known Family History: Negative: Diabetes - Social History Alcohol Use: Weekly Alcohol Amount: 2 GLASSES WEEK Hx Substance Use: No Substance Use Type: Reports: None Hx Tobacco Use: Yes Smoking Status (MU): Former Smoker Amount Used/How Often: 2PPD 30 YRS Have You Smoked in the Last Year: No Review of Systems Negative: Fever Gastrointestinal: Negative Negative: Vomiting, Nausea Genitourinary: Negative Neurological: Other - lightheadedness, right arm numbness Positive: Headache. Negative: Paresthesia, Numbness, Slurred Speech All Other Systems Reviewed And Are Negative: Yes Physical Exam - Summary Physical Exam Summary: Appearance: Well appearing, comfortable, no pain distress Skin: warm, dry, reflects adequate perfusion, scar on chest from aortic valve replacement Head/face: normal Eyes: small pupiles, implanted lenses in both eyes ENT: mucous membranes moist Neck: supple, non-tender Respiratory: CTA, breath sounds present Cardiovascular: RRR, pulses symmetrical Abdomen: non-tender, soft Bowel Sounds: present Musculoskeletal: normal, strength/ROM intact Neuro: normal, sensory motor intact, A&Ox3 GCS: 15 Triage Information Reviewed: Yes Vital Signs On Initial Exam: Initial Vitals Temp Pulse Resp BP Pulse Ox 96.7 F 82 15 133/80 96 07/29/18 16:57 07/29/18 16:57 07/29/18 16:57 07/29/18 16:57 07/29/18 16:57 Vital Signs Reviewed: Yes Procedures - Procedure Summary Procedure Summary: Nerve block performed for headache: The patient was experiencing right frontal headaches and so nerve block was performed with a total of 2 cc of 1% lidocaine with epinephrine in the orbital rim at the trocar your and supraorbital nerve. This resolved any residual headache she had. She tolerated this well without complication. Diagnostics - Vital Signs Vital Signs Temp Pulse Resp BP Pulse Ox 07/29/18 16:57 96.7 F 82 15 133/80 96 - Laboratory Result Diagrams: 07/29/18 19:21 07/29/18 19:21 Lab Statement: Any lab studies that have been ordered have been reviewed, and results considered in the medical decision making process. - CT Brain CT Interpretation Completed By: Radiologist Summary of CT Findings: 1. There is age-related diffuse cerebral and cerebellar volume loss and chronic microvascular ischemic disease. 2. No acute intracranial pathology. ED physician has reviewed this report. CTA Head CT Interpretation Completed By: Radiologist Summary of CT Findings: 1. There is stable age-related diffuse cerebral volume loss and chronic. microvascular ischemic disease. 2. No acute CTA pathology. No arterial occlusion or a hemodynamically significant stenosis or visible aneurysm. ED physician has reviewed this report. This report is only to be considered final once signed by the Provider(s) as displayed in the "< Electronically Signed by >" field (s). Absence of a. signature indicates the report is in a draft status and still needs to be finalized. In the event this document was created by someone other than the. signing Provider, the individual initiating the document will be listed in the "Entered by:" or "Dictated by:" dewitt. 2 of 2 National Institutes Of Health - NIH Scale Level of Consciousness: Alert/Keenly Responsive Ask Patient the Month and His/Her Age: Both Correct Ask Pt to Open/Close Eyes and Enterprise Resource Planner/Release Non-Paretic Hand: Both Correctly Best Gaze (Only Horizontal Eye Movement): Normal Visual Field Testing: No Visual Loss Facial Paresis-Pt to Smile & Close Eyes or Grimace Symmetry: Normal/Symmetrical Motor Function - Right Arm: No Drift-Holds 10 Seconds Motor Function - Left Arm: No Drift-Holds 10 Seconds Motor Function - Right Leg: No Drift-Holds 10 Seconds Motor Function - Left Leg: No Drift-Holds 10 Seconds Limb Ataxia-Must be out of Proportion to Weakness Present: Absent Sensory (Use Pinprick to Test Arms/Legs/Trunk/Face): Normal Best Language (Describe Picture, Name Items): No Aphasia Dysarthria (Read Several Words): Normal Extinction and Inattention: No Abnormality Total Score: 0 Re-Evaluation - Re-Evaluation First Eval Re-Evaluation Time: 20:42 Comment: Patient does not have a headache now Headache Course/Dx - Course Course Of Treatment: Nurse's note reviewed. Patient with a right-sided throbbing headache that is mostly better now and is exacerbated by her daily gym routine where she lifts light weights. Head CT is negative and this was followed by CT angiogram of the brain which ruled out aneurysm. There were no acute findings on either scan. Laboratories are negative. She is comfortable at present. She had mild frontal headache bilaterally which was treated with complete relief after nerve block. She'll follow closely with her primary care physician. - Diagnoses Differential Diagnosis/HQI/PQRI: Subdural Hematoma, Migraine, Sinus Headache, Subarachnoid Hemorrhage, Tension Headache Provider Diagnoses: Frontal headache Discharge - Sign-Out/Discharge Documenting (check all that apply): Patient Departure - Discharge Patient Received Moderate/Deep Sedation with Procedure: No - Discharge Plan Condition: Improved Disposition: HOME Patient Education Materials: Acute Headache (ED) Referrals: Sushil Shabazz MD [Primary Care Provider] - Additional Instructions: Call your doctor first thing in the morning to schedule follow-up. Use ibuprofen or Tylenol as needed for headache. Return with severe headache, vomiting, worse, new symptoms or other concerns. - Billing Disposition and Condition Condition: IMPROVED Disposition: Home - Attestation Statements Document Initiated by Agustin: Yes Documenting Scribe: Erika Linares Provider For Whom Estellae is Documenting (Include Credential): Grant Bee MD Scribe Attestation: Erika Martínez scribed for Grant Bee MD on 07/29/18 at 2122. Scribe Documentation Reviewed: Yes Provider Attestation: The documentation as recorded by the Erika yu accurately reflects the service I personally performed and the decisions made by Grant echeverria MD Status of Scribe Document: Viewed
[2018-07-29 19:36] LABS: ABS Basophils 0.1 10^3/ul (0-0.2); ABS Eosinophils 0.1 10^3/ul (0-0.6); ABS Monocytes 0.5 10^3/ul (0-0.8); ABS Neutrophils 2.4 10^3/ul (1.5-7.7); ABS Nucleated RBC 0 10^3/ul; Eosinophil % 2.9 %; Hematocrit 40 % (35-47); Hemoglobin 13.1 g/dl (12.0-16.0); Lymphocyte % 39.7 %; Mean Corpuscular HGB Conc 33 g/dl (31-36); Mean Corpuscular Hemoglobin 33 pg (27-31); Mean Corpuscular Volume 100 fL (80-97); Mean Platelet Volume 8.8 fL (7.4-10.4); Nucleated Red Blood Cells % 0.1; Platelet Count 182 10^3/ul (150-450); Red Blood Count 3.96 10^6/ul (4.00-5.40); Red Cell Distribution Width 14 % (10.5-15); White Blood Count 5.1 10^3/ul (3.5-10.8)
[2018-07-29 19:52] LABS: BUN/Creatinine Ratio 16.8 (8-20); Calcium 9.6 mg/dL (8.6-10.3)
[2018-07-29 21:06] LABS: Potassium 4.2 mmol/L (3.5-5.0)
[2018-07-29 21:20] VITALS: BP 120/69
== END | disposition home or self-care (01) ==
LOC: ED 16:55
DX: G44.009 Cluster headache syndrome, unspecified, not intractable (principal); Z95.2 Presence of prosthetic heart valve; Z96.643 Presence of artificial hip joint, bilateral; Z88.0 Allergy status to penicillin; Z87.891 Personal history of nicotine dependence
CPT/HCPCS: 36415; 70450; 70496; 80048; 85025; 99282; Q9967